=== PATIENT | male | born 1935 | race Caucasian/White ===

== ENCOUNTER 2017-05-29 11:19 | Inpatient (IN) ==
[2017-05-29] MEDS ORDERED: Pantoprazole 40 MG VIAL IVP ONE (11:48)
[2017-05-29] MEDS ORDERED: Ondansetron 4 MG/2 ML VIAL IVP ONE (11:48)
[2017-05-29 12:17] LABS: Basophils % 0.1 %; Eosinophils % 0.1 %; Red Blood Count 1.86 M/mcL (4.19-5.50)
[2017-05-29 12:18] LABS: Hematocrit 16.7 % (37.5-50.1); Immature Granulocytes % 0.7 % (0-4); Lymphocytes # 1.2 K/mcL (0.6-4.6); Lymphocytes % 13.8 %; Mean Corpuscular HGB Conc 31.1 g/dL (31.6-35.5); Mean Corpuscular Volume 89.8 fL (83.0-100.0); Mean Platelet Volume 10.4 fL (9.4-12.4); Monocytes # 0.6 K/mcL (0.0-1.3); Monocytes % 6.3 %; Neutrophils # 7.1 K/mcL (1.6-8.9); Nucleated Red Blood Cells 0.2 /100 WBC (0); Platelet Count 179 K/mcL (140-400); Red Cell Distribution Width 20.5 % (11.5-14.5)
[2017-05-29 12:34] LABS: Albumin 3.5 g/dL (3.5-5.0); Albumin/Globulin Ratio 1.2 (1.1-2.2); Bilirubin,Direct 0.2 mg/dL (0.0-0.5); Bilirubin,Indirect 0.3 mg/dL (0.0-1.2); Bilirubin,Total 0.5 mg/dL (0.2-1.2); Calcium 9.4 mg/dL (8.6-10.8); Globulin 2.9 g/dL (2.4-3.5); Potassium 4.3 mEq/L (3.5-4.5); Total Protein 6.4 g/dL (6.0-8.3)
[2017-05-29 12:36] LABS: Hemoglobin 5.2 g/dL (12.9-16.9)
[2017-05-29 12:48] LABS: Anisocytosis 1+ (Not Present); Platelet Estimate Normal (Normal); Polychromasia 1+ (Not Present); Rouleaux Present (Not Present)
[2017-05-29 12:54] LABS: INR 1.2; Prothrombin Time 12.8 Seconds (9.4-12.1)
[2017-05-29 12:56] LABS: Activated Partial Thrombo Time 29.5 Seconds (26.0-36.0)
--- NOTE | 2017-05-29 13:13 | Emergency Department Note ---
Disposition Clinical Impression: Bleeding gastrointestinal Qualifiers: GI bleed type/associated pathology: melena Qualified Code(s): K92.1 - Melena Disposition: Admitted As Inpatient Condition: Good Time of Disposition: 16:43 General Adult HPI - General Chief complaint: ED Abdominal Pain Stated complaint: ABD PAIN Time Seen by Provider: 05/29/17 11:48 Source: patient Limitations: no limitations Nursing Notes Reviewed: Yes Vital Signs Reviewed: Yes - History of Present Illness HPI Narrative: Male patient presenting to emergency complaining of 3 coffee-ground stools overnight. He states that he is generally weak and a little short of breath. Denies any chest pain. Denies any abdominal pain initially. Denies any emesis. Pain Scale: 5 - Related Data Home Medications Medication Instructions Recorded Confirmed Doxazosin [Cardura] 4 mg PO DAILY 05/29/16 05/29/17 Furosemide [Lasix] 40 mg PO DAILY 05/29/16 05/29/17 Irbesartan [Avapro] 150 mg PO DAILY 05/29/16 05/29/17 Levothyroxine [Synthroid] 112 mcg PO DAILY 05/29/16 05/29/17 Pramipexole [Mirapex] 0.25 mg PO HS 05/29/16 05/29/17 hydrALAZINE [HydrALAZINE] 25 mg PO TID 05/29/16 05/29/17 Albuterol Sulfate [Albuterol 2 puff IH Q4-6H PRN 11/03/16 05/29/17 Inhaler] Aspirin [Lo-Dose Aspirin EC] 81 mg PO DAILY 11/03/16 05/29/17 Meclizine [Antivert] 25 mg PO DAILY 11/03/16 05/29/17 Ferrous Sulfate [Iron] 325 mg PO BID 05/29/17 05/29/17 Gabapentin [Neurontin] 300 mg PO Q8H 05/29/17 05/29/17 HYDROcodone/Acet 5/325 mg [Pryor 1 tab PO Q6H PRN 05/29/17 05/29/17 5-325 mg] Metoprolol XL (24 HR) Succ [Toprol 50 mg PO DAILY 05/29/17 05/29/17 XL] NIFEdipine XL (24 HR) [Procardia 60 mg PO DAILY 05/29/17 05/29/17 XL] Potassium Chloride [K-Tab ER] 20 meq PO DAILY 05/29/17 05/29/17 Ranitidine HCl [Heartburn Relief] 150 mg PO BID PRN 05/29/17 05/29/17 SitaGLIPtin [Januvia] 100 mg PO DAILY 05/29/17 05/29/17 clonazePAM [Klonopin] 0.5 mg PO BID PRN 05/29/17 05/29/17 Allergies Allergy/AdvReac Type Severity Reaction Status Date / Time No Known Allergies Allergy Verified 05/29/16 18:05 All systems ED: reviewed and negative except as stated. Constitutional: Denies: fever, chills ENT ED: Denies: congestion Cardiovascular: Denies: chest pain, palpitations, syncope Respiratory: Reports: dyspnea (Mild). Denies: cough, wheezes Gastrointestinal: Reports: diarrhea (Coffee-ground colored 3 episodes overnight. ). Denies: abdominal pain, nausea, vomiting, hematemesis, melena, hematochezia Genitourinary: Denies: urgency, dysuria, frequency, hematuria Musculoskeletal: Denies: back pain, neck pain Integumentary: Denies: rash Neurological: Reports: weakness Past Medical History - Past Medical History Attestation: Yes The following information was validated with the patient. Source: patient Medical history: Reports: CHF, coronary artery disease, dementia, diabetes, hyperlipidemia, hypertension, pulmonary embolus, thyroid disease Surgical history: Reports: orthopedic, other (Cervical fixation 2) Psychiatric history: Reports: no psych history - Social History Smoking Status: Former smoker Smokeless Tobacco Status: No Alcohol use: Reports: occasionally Drug use: Reports: none Physical Exam - General Limitations: no limitations General appearance: alert, in no apparent distress - Head Head exam: atraumatic, normocephalic, normal inspection - Eye Eye exam: Present: normal appearance, PERRL, EOMI - ENT ENT exam: normal exam, normal oropharynx, mucous membranes moist - Neck Neck exam: Present: normal inspection, full ROM, trachea midline - Chest Chest inspection: Present: normal inspection, symmetric chest wall rise - Respiratory Respiratory exam: Present: normal lung sounds bilaterally. Absent: respiratory distress - Cardiovascular Cardiovascular exam: Present: regular rate, normal rhythm, normal heart sounds - Abdominal Exam Abdominal exam: Present: soft, Non-Tender, normal bowel sounds. Absent: tenderness, distention, guarding, rebound, rigidity, organomegaly - Extremities Exam Extremities exam: Present: normal inspection, full ROM, normal capillary refill. Absent: tenderness, pedal edema - Back Exam Back exam: Present: normal inspection, full ROM. Absent: tenderness, CVA tenderness (R), CVA tenderness (L) - Neurological Exam Neurological exam: Present: alert, oriented X3 - Psychiatric Psychiatric exam: Present: normal affect, normal mood - Skin Skin exam: Present: warm, dry, intact, pallor. Absent: rash Course Course Narrative: Patient presents in respiratory be a EMS. He states that he has had 3 episodes of coffee-ground stools over the past night. This has happened one other time in the and had have blood transfusion at that time. States he has never had any belly surgeries. Did have a colonoscopy in the as well. He otherwise feels well. He has some mild nausea but no vomiting. On exam he is pale. His conjunctivae are pale. He states he is mildly short of breath and weak. Denies any chest pain or abdominal pain. However on palpation he has some mild pain in his right and left lower quadrants. He denies any urinary symptoms. He denies any bright red blood per rectum. We will get basic lab workup and type and screen him at this time. I am suspecting a GI bleed at this time. We will also place an NG to suction. His lung sounds are clear and heart sounds are normal. He has no evidence of swelling to his extremities. Patient denies any anticoagulant use of other than aspirin. - Reevaluation(s) Reevaluation #1: Patient's hemoglobin is 5. We will transfuse patient while he is here. NG did not produce any blood. Bedside Hemoccult was positive. We will admit patient to the hospital for GI bleed. He is agreeable to this. - Consultations Consultation #1: Dr Graf accepted patient in stable condition. Time: 14:19 Vital Signs Temperature 97.6 F 05/29/17 11:22 Pulse Rate 92 05/29/17 11:22 Respiratory Rate 22 05/29/17 11:22 Blood Pressure 122/38 05/29/17 11:22 O2 Sat by Pulse Oximetry 97 05/29/17 11:22 Temperature 98.4 F 05/29/17 17:41 Pulse Rate 70 05/29/17 17:41 Respiratory Rate 15 05/29/17 17:41 Blood Pressure 148/75 05/29/17 17:41 O2 Sat by Pulse Oximetry 98 05/29/17 17:41 Oxygen Delivery Oxygen Delivery Room Air Medical Decision Making - Medical Records Medical records reviewed: Yes I reviewed the patient's medical records. - Lab Data Lab results reviewed: Yes I reviewed the patient's lab results. Result diagrams: 05/29/17 12:08 05/29/17 12:08 Lab Results 05/29/17 05/29/17 05/29/17 Range/Units 12:08 12:08 12:08 WBC 9.0 (4.3-11.1) K/mcL RBC 1.86 L (4.19-5.50) M/mcL Hgb 5.2 L* (12.9-16.9) g/dL Hct 16.7 L (37.5-50.1) % MCV 89.8 (83.0-100.0) fL MCH 28.0 (28.0-33.3) pg MCHC 31.1 L (31.6-35.5) g/dL RDW 20.5 H (11.5-14.5) % Plt Count 179 (140-400) K/mcL MPV 10.4 (9.4-12.4) fL Immature Gran % 0.7 (0-4) % Seg Neutrophils % 79.0 % Lymphocytes % 13.8 % Monocytes % 6.3 % Eosinophils % 0.1 % Basophils % 0.1 % Neutrophils # 7.1 (1.6-8.9) K/mcL Lymphocytes # 1.2 (0.6-4.6) K/mcL Monocytes # 0.6 (0.0-1.3) K/mcL Eosinophils # 0.0 (0.0-0.6) K/mcL Basophils # 0.0 (0.0-0.2) K/mcL Nucleated RBCs/100 WBC 0.2 H (0) /100 WBC Platelet Estimate Normal (Normal) Polychromasia 1+ A (Not Present) Anisocytosis 1+ A (Not Present) Rouleaux Present A (Not Present) PT (9.4-12.1) Seconds INR APTT (26.0-36.0) Seconds Sodium 140 (136-145) mEq/L Potassium 4.3 (3.5-4.5) mEq/L Chloride 108 (98-109) mEq/L Carbon Dioxide 20 (19-29) mEq/L BUN 72 H (8-26) mg/dL Creatinine 1.87 H (0.72-1.25) mg/dL Est GFR ( Amer) 42 L (> 60) Est GFR (Non-Af Amer) 35 L (> 60) BUN/Creatinine Ratio 39 H (6-26) Glucose 173 H (70-99) mg/dL Calculated Osmolality 315 H (280-300) Lactic Acid 3.1 H (0.5-2.2) mmol/L Calcium 9.4 (8.6-10.8) mg/dL Total Bilirubin 0.5 (0.2-1.2) mg/dL Direct Bilirubin 0.2 (0.0-0.5) mg/dL Indirect Bilirubin 0.3 (0.0-1.2) mg/dL AST 13 (5-34) Units/L ALT 11 (0-55) Units/L Alkaline Phosphatase 67 (38-126) Units/L Troponin I (0-0.03) ng/mL Serum Total Protein 6.4 (6.0-8.3) g/dL Albumin 3.5 (3.5-5.0) g/dL Globulin 2.9 (2.4-3.5) g/dL Albumin/Globulin Ratio 1.2 (1.1-2.2) Lipase 23 (8-78) Units/L Stool Occult Blood (Negative) Specimen Rejected Blood Type Antibody Screen Crossmatch 05/29/17 05/29/17 05/29/17 Range/Units 12:08 12:08 12:08 WBC (4.3-11.1) K/mcL RBC (4.19-5.50) M/mcL Hgb (12.9-16.9) g/dL Hct (37.5-50.1) % MCV (83.0-100.0) fL MCH (28.0-33.3) pg MCHC (31.6-35.5) g/dL RDW (11.5-14.5) % Plt Count (140-400) K/mcL MPV (9.4-12.4) fL Immature Gran % (0-4) % Seg Neutrophils % % Lymphocytes % % Monocytes % % Eosinophils % % Basophils % % Neutrophils # (1.6-8.9) K/mcL Lymphocytes # (0.6-4.6) K/mcL Monocytes # (0.0-1.3) K/mcL Eosinophils # (0.0-0.6) K/mcL Basophils # (0.0-0.2) K/mcL Nucleated RBCs/100 WBC (0) /100 WBC Platelet Estimate (Normal) Polychromasia (Not Present) Anisocytosis (Not Present) Rouleaux (Not Present) PT (9.4-12.1) Seconds INR APTT (26.0-36.0) Seconds Sodium (136-145) mEq/L Potassium (3.5-4.5) mEq/L Chloride (98-109) mEq/L Carbon Dioxide (19-29) mEq/L BUN (8-26) mg/dL Creatinine (0.72-1.25) mg/dL Est GFR ( Amer) (> 60) Est GFR (Non-Af Amer) (> 60) BUN/Creatinine Ratio (6-26) Glucose (70-99) mg/dL Calculated Osmolality (280-300) Lactic Acid (0.5-2.2) mmol/L Calcium (8.6-10.8) mg/dL Total Bilirubin (0.2-1.2) mg/dL Direct Bilirubin (0.0-0.5) mg/dL Indirect Bilirubin (0.0-1.2) mg/dL AST (5-34) Units/L ALT (0-55) Units/L Alkaline Phosphatase (38-126) Units/L Troponin I 0.05 H* (0-0.03) ng/mL Serum Total Protein (6.0-8.3) g/dL Albumin (3.5-5.0) g/dL Globulin (2.4-3.5) g/dL Albumin/Globulin Ratio (1.1-2.2) Lipase (8-78) Units/L Stool Occult Blood (Negative) Specimen Rejected Volume Blood Type O POSITIVE Antibody Screen NEGATIVE Crossmatch See Detail 05/29/17 05/29/17 Range/Units 12:33 14:12 WBC (4.3-11.1) K/mcL RBC (4.19-5.50) M/mcL Hgb (12.9-16.9) g/dL Hct (37.5-50.1) % MCV (83.0-100.0) fL MCH (28.0-33.3) pg MCHC (31.6-35.5) g/dL RDW (11.5-14.5) % Plt Count (140-400) K/mcL MPV (9.4-12.4) fL Immature Gran % (0-4) % Seg Neutrophils % % Lymphocytes % % Monocytes % % Eosinophils % % Basophils % % Neutrophils # (1.6-8.9) K/mcL Lymphocytes # (0.6-4.6) K/mcL Monocytes # (0.0-1.3) K/mcL Eosinophils # (0.0-0.6) K/mcL Basophils # (0.0-0.2) K/mcL Nucleated RBCs/100 WBC (0) /100 WBC Platelet Estimate (Normal) Polychromasia (Not Present) Anisocytosis (Not Present) Rouleaux (Not Present) PT 12.8 H (9.4-12.1) Seconds INR 1.2 APTT 29.5 (26.0-36.0) Seconds Sodium (136-145) mEq/L Potassium (3.5-4.5) mEq/L Chloride (98-109) mEq/L Carbon Dioxide (19-29) mEq/L BUN (8-26) mg/dL Creatinine (0.72-1.25) mg/dL Est GFR ( Amer) (> 60) Est GFR (Non-Af Amer) (> 60) BUN/Creatinine Ratio (6-26) Glucose (70-99) mg/dL Calculated Osmolality (280-300) Lactic Acid (0.5-2.2) mmol/L Calcium (8.6-10.8) mg/dL Total Bilirubin (0.2-1.2) mg/dL Direct Bilirubin (0.0-0.5) mg/dL Indirect Bilirubin (0.0-1.2) mg/dL AST (5-34) Units/L ALT (0-55) Units/L Alkaline Phosphatase (38-126) Units/L Troponin I (0-0.03) ng/mL Serum Total Protein (6.0-8.3) g/dL Albumin (3.5-5.0) g/dL Globulin (2.4-3.5) g/dL Albumin/Globulin Ratio (1.1-2.2) Lipase (8-78) Units/L Stool Occult Blood Positive A (Negative) Specimen Rejected Blood Type Antibody Screen Crossmatch - Radiology Data Radiology results reviewed: Yes I reviewed the patient's radiology results. Critical Care Time Total Critical Care Time: 31 Attestation: Greater than 31 minutes of critical care time was spent resuscitating this acutely ill and injured patient suffering from gastrointestinal hemorrhage. This was excluding billable procedures Attestation Statement - Attestation Attestation: I examined this patient and my medical decision-making was reviewed with the Resident Physician. I agree with the documented findings, disposition and treatment plan as described except to the extent set forth below. Patient with findings of gastrointestinal hemorrhage. Protonix initiated. Will initiate transfusions. Patient is stable at the time of admission. No signs of hemodynamic instability.
[2017-05-29] MEDS ORDERED: Acetaminophen 325 MG TABLET PO PRN (16:14)
[2017-05-29] MEDS ORDERED: *HR* Morphine 2 MG/ML SYRINGE IVP PRN (16:14)
[2017-05-29] MEDS ORDERED: *HR* HYDROcodone/Acet 5/325 mg TABLET PO PRN (16:14)
[2017-05-29] MEDS ORDERED: Ondansetron 4 MG/2 ML VIAL IVP PRN (16:14)
[2017-05-29] MEDS ORDERED: Naloxone 0.4 MG/ML INJ IVP PRN (16:14)
[2017-05-29] MEDS ORDERED: clonazePAM 0.5 MG TABLET PO PRN (16:28)
[2017-05-29] MEDS ORDERED: SODIUM CHLORIDE/NAHCO3/KCL/PEG 4,000 ML SOLN.RECON PO ONE (16:35)
[2017-05-29] MEDS ORDERED: *HR* Dextrose 50 % in Water (Syg) 50 ML SYRINGE IVP PRN (16:36)
[2017-05-29] MEDS ORDERED: Dextrose Gel 15 GM PO PRN ×2 (16:36)
[2017-05-29] MEDS ORDERED: D5% in Water 1,000 ML IVC PRN (16:36)
[2017-05-29] MEDS ORDERED: Polyethylene Glycol 3350 255 GM POWDER PO PRN (17:01)
--- NOTE | 2017-05-29 17:07 | Internal Med History&Physical ---
<José Manuel Balderas - Last Filed: 05/29/17 18:28> Date of Encounter: 05/29/17 Time of Encounter: 15:30 Assessment and Plan (1) Bleeding gastrointestinal Current visit: Yes Status: Acute Patient presents with report of three coffee-ground stools last night. Hgb today is 5.2 and Hct 16.7. In October, Hgb was 11.4 and Hct was 34.8. 06/01/16 patient's Hgb was 9.5 and Hct was 28.9 which was his lowest prior to today. Patient was typed and screened and found to be O positive with negative antibody screen. Patient reports coffee-ground stools x3 last night. Acute anemia is likely due to GI bleed. GI consult ordered and discussed with Dr. Arrieta with plan to administer bowel prep this evening and do colonoscopy tomorrow if patient has completed prep successfully. GoLytely 4,000 mL ordered with back-up of Miralax/Gatorade if patient cannot tolerate GoLytely. Clear liquid diet tonight, then NPO after midnight. Protonix drip ordered. Patient received 2 units of RBCs in the ED and we will continue with 1 more. Patient to be monitored closely for signs of bleeding, cardiac, and/or respiratory distress. (2) Low hemoglobin and low hematocrit Current visit: Yes Status: Acute Patient presents with acutely low Hgb and Hct. Hgb today is 5.2 and Hct 16.7. In October, Hgb was 11.4 and Hct was 34.8. 06/01/16 patient's Hgb was 9.5 and Hct was 28.9 which was his lowest prior to today. Patient was typed and screened and found to be O positive with negative antibody screen. Patient reports coffee-ground stools x3 last night. Acute anemia is likely due to GI bleed. GI consult ordered and discussed with Dr. Arrieta. Patient received 2 units of RBCs in the ED and we will continue with 1 more. Patient to be monitored closely for signs of cardiac and/or respiratory distress. (3) SOB (shortness of breath) Current visit: Yes Status: Acute Patient presents with acute SOB most likely related to current acute anemia. Patient's does not appear to be having acute exacerbation of CHF. Place patient on supplemental O2 with continuous SPO2 monitoring. Will hold patient's Lasix for now. DuoNebs ordered every 4 scheduled. Will monitor patient for signs of fluid overload and administer lasix IVP if necessary. Monitor I&O and daily weight. (4) CHF (congestive heart failure) Current visit: Yes Status: Chronic Patient presents with history of chronic CHF. Patient is currently experiencing acute SOB most likely related to current acute anemia. Patient's bilateral lower extremities are not edematous at this time. Patient has minor wheezes on auscultation bilaterally. Place patient on supplemental O2 with continuous SPO2 monitoring. Will hold patient's Lasix for now. DuoNebs ordered every 4 scheduled. Will monitor patient for signs of fluid overload and administer lasix IVP if necessary. Monitor I&O and daily weight. (5) Diabetes Current visit: Yes Status: Chronic Patient presents with history of chronic diabetes managed by oral anti- hyperglycemic medications. Patient's Januvia and administer low-dose correction insulin sliding scale with hypoglycemic protocol. Blood glucose monitoring before meals at bedtime. A1c ordered. (6) HLD (hyperlipidemia) Current visit: Yes Status: Chronic Patient presents with history of chronic hyperlipidemia. Patient does not currently take any statin medications. Lipid panel ordered. Will consider adding Lipitor to patient's medications based on lipid panel results. (7) HTN (hypertension) Current visit: Yes Status: Chronic Patient presents with history of chronic hypertension. Will monitor patient in vital signs and continue patient's Procardia, hydralazine, and metoprolol. Hydralazine 10 mg IVP every 6 when necessary ordered for systolic BP greater than 160. (8) Thyroid disease Current visit: Yes Status: Chronic Patient presents with history of chronic thyroid disease. Will continue patient' s Synthroid. (9) CAD (coronary artery disease) Current visit: Yes Status: Chronic Patient presents with history of chronic CAD. Continuous telemetry. EKG ordered. Will continue patient's Procardia, hydralazine, and metoprolol. Hydralazine 10 mg Q6 PRN ordered for systolic BP >160. (10) DVT prophylaxis Current visit: Yes Status: Acute Patient to be placed on DVT prophylaxis due to current admission protocol and bed rest status. Pharmacologic DVT prophylaxis is contraindicated due to patient 's suspected GI bleeding based on coffee-ground stool and positive fecal hemoccult. Will place SCDs on patient's bilateral LEs. Internal Medicine - H&P: HPI Chief complaint: Abdominal Pain/Coffee-Ground Stools Admitted From: Emergency Dept Plans for Post Hospital Care: Home History of present illness: Mr. Nix is a 81 year old male who presents from the ED with chief complaint of abdominal pain and 3 episodes of coffee-ground stool last night. Patient reports shortness of breath, weakness, and lightheadedness. Patient has no known allergies. Patient's past medical history includes diabetes type 2 with oral anti-hyperglycemics, CHF, CAD, hypertension, hyperlipidemia, thyroid disease and surgical history of bilateral knee arthroplasty, and lumbar spinal fusion. presented yesterday due to 3x coffee-ground bowel movements for 1 day with nausea but no vomiting. He was diagnosed with unspecified kidney disease this year and sees Dr. Castle at [facility]. His last colonoscopy was in the late . Patient states he cannot recall having an EGD. He is generally weak and has shortness of breath. He denied any chest pain or abdominal pain. FOBT was positive. CT abdomen revealed renal and hepatic cysts, no dilated loops or appendix, diverticulosis without inflammation. His hemoglobin today was 5.2 and received one unit of blood product. His Urine culture was positive for E. coli without leukocytosis. Lactic acid = 3.1, Troponin = 0.5, GFR = 35. Mr. Nix is at high risk for further morbidity due to his current suspected bleeding, low H/ H, need for transfusions, and cardiac/respiratory risk factors and will be placed as inpatient. GI consult ordered and discussed with Dr. Arrieta with plan to administer bowel prep this evening and do colonoscopy tomorrow if patient has completed prep successfully. GoLytely 4,000 mL ordered with back-up of Miralax/Gatorade if patient cannot tolerate GoLytely. Clear liquid diet tonight , then NPO after midnight. Protonix drip ordered. Patient received 2 units of RBCs in the ED and we will continue with 1 more. Patient placed on continuous cardiac telemetry, supplemental O2, and continuous SpO2 monitoring. DuoNebs Q4 ordered. Patient to be monitored closely for signs of bleeding, cardiac, and/or respiratory distress. Time spent with patient and family >50 minutes. Past Med Surg Social Fam HX - Past Medical History Source: patient Medical history: CHF, coronary artery disease, dementia, diabetes, hyperlipidemia, hypertension, pulmonary embolus, thyroid disease Psychiatric history: no psych history - Past Surgical History Surgical History: orthopedic, other (Cervical fixation 2, Bilateral knees) - Social History Smoking Status: Former smoker Packs per day: 1 PPD - reports quitting in 1952 Smokeless Tobacco Status: No Alcohol use: occasionally Drug use: none Occupational status: retired Current living situation: Home, With Family Activity Level: Independent ambulation Recent Out of Country Travel Within the Last 8 Weeks: No Exposure or Possible Exposure to Illness During Travel: No - Family History Father Race: Family Member Ethnicity: Non- Living Status: Age at : 80 Cause of : Old age Hx Family Medical Disorders: No Mother Race: Family Member Ethnicity: Non- Living Status: Age at : 64 Cause of : HD Hx Family Cardiac Disorders: Yes (HD) Brother Race: Family Member Ethnicity: Non- Living Status: Age at : 42 Cause of : CT Hx Family Cardiac Disorders: Yes (HD, CT) Sister Race: Family Member Ethnicity: Non- Living Status: Age at : 72 Cause of : CHF Hx Family Cardiac Disorders: Yes (HD, CHF) Internal Medicine - H&P: Meds Doxazosin [Cardura] 4 mg PO DAILY 05/29/16 [History] Furosemide [Lasix] 40 mg PO DAILY 05/29/16 [History] Irbesartan [Avapro] 150 mg PO DAILY 05/29/16 [History] Levothyroxine [Synthroid] 112 mcg PO DAILY 05/29/16 [History] Pramipexole [Mirapex] 0.25 mg PO HS 05/29/16 [History] hydrALAZINE [HydrALAZINE] 25 mg PO TID 05/29/16 [History] Albuterol Sulfate [Albuterol Inhaler] 2 puff IH Q4-6H PRN 11/03/16 [History] Aspirin [Lo-Dose Aspirin EC] 81 mg PO DAILY 11/03/16 [History] Meclizine [Antivert] 25 mg PO DAILY 11/03/16 [History] Ferrous Sulfate [Iron] 325 mg PO BID 05/29/17 [History] Gabapentin [Neurontin] 300 mg PO Q8H 05/29/17 [History] HYDROcodone/Acet 5/325 mg [[place] 5-325 mg] 1 tab PO Q6H PRN 05/29/17 [History] Metoprolol XL (24 HR) Succ [Toprol XL] 50 mg PO DAILY 05/29/17 [History] NIFEdipine XL (24 HR) [Procardia XL] 60 mg PO DAILY 05/29/17 [History] Potassium Chloride [K-Tab ER] 20 meq PO DAILY 05/29/17 [History] Ranitidine HCl [Heartburn Relief] 150 mg PO BID PRN 05/29/17 [History] SitaGLIPtin [Januvia] 100 mg PO DAILY 05/29/17 [History] clonazePAM [Klonopin] 0.5 mg PO BID PRN 05/29/17 [History] 3 Allergy/AdvReac Type Severity Reaction Status Date / Time No Known Allergies Allergy Verified 05/29/16 18:05 All Systems PM: A 10-system review of systems was performed and is negative for pertinent findings except as documented above in the HPI. - Constitutional Constitutional: as per HPI, fatigue, weakness, no chills, no fever(s), no night sweats - EENT Eyes: no change in vision, no discharge, no pain, no photophobia Ears: no ear discharge, no ear pain, no tinnitus Nose, mouth and throat: no dysphagia, no nasal discharge, no neck pain, no sore throat - Breasts Breasts: as per HPI - Cardiovascular Cardiovascular ROS IM: as per HPI, dyspnea, lightheadedness, no chest pain, no diaphoresis, no palpitations, no syncope - Respiratory Respiratory: as per HPI, dyspnea - Gastrointestinal Gastrointestinal: as per HPI, abdominal pain, change in stool character (Coffe ground stools x3 last night) - Genitourinary Genitourinary ROS male: as per HPI - Musculoskeletal Musculoskeletal ROS IM: no numbness, no tingling - Integumentary Integumentary IM: no rash, no unusual bruising - Neurological Neurological ROS: no confusion, no convulsions, no focal weakness, no numbness, no tingling, no tremor(s) - Psychiatric Psychiatric: as per HPI - Endocrine Endocrine IM: as per HPI - Hematologic/Lymphatic Hematologic/Lymphatic: as per HPI, no easy bruising - Allergic/Immunologic Allergic/Immunologic: as per HPI - Constitutional Vitals: Temp Pulse Resp BP Pulse Ox 98.3 F 69 18 163/61 100 05/29/17 16:29 05/29/17 16:29 05/29/17 16:29 05/29/17 16:29 05/29/17 16:29 General appearance: Present: cooperative, mild distress, A&O X 3, pleasant, obese, answers questions appropriately - Head Head exam: Present: atraumatic, normocephalic - Eye Eye exam: Present: PERRL, conjuntiva pink, sclera anicteric Pupils: Present: PERRL - ENT ENT exam: Present: normal exam, normal external ear exam - Neck Neck exam general surgery: Present: normal inspection, supple, trachea midline. Absent: lymphadenopathy - Respiratory Respiratory exam: Present: accessory muscle use, respiratory distress, wheezes - Cardiovascular Cardiovascular exam: Present: RRR, +S1, +S2. Absent: diastolic murmur, gallop, rubs, systolic murmur - GI/Abdominal GI/Abdominal exam: Present: diminished bowel sounds, guarding, soft, no peritoneal signs. Absent: distended, tenderness - Rectal Rectal exam: Present: deferred - Additional comments: exam deferred. - Extremities Exam Extremities exam: Present: warm, radial pulses palpable and symmetrical. Absent : calf tenderness, cyanotic, pedal edema - Back Exam Back exam: Present: normal inspection - Neurological Exam Neurological exam: Present: CN II-XII intact, oriented X3, no focal deficits. Absent: pronater drift, facial droop, speech deficit - Psychiatric Psychiatric exam: Present: normal affect, normal mood - Skin Skin exam: Present: dry, intact Internal Med - H&P Results - Labs CBC & Chem 7: 05/29/17 12:08 05/29/17 12:08 - Diagnostic Studies CT scan - abdomen Additional comments: Impressions Abdomen/Pelvis CT 05/29/17 11:50 IMPRESSION: 1. No acute intra-abdominal abnormality. 2. No acute intrapelvic abnormality. 3. Diverticulosis without obvious inflammation. 4. Bilateral renal and hepatic cysts. 5. Small fat containing periumbilical hernia. D/ / Doron Bah MD / Doron Bah MD Interpreting Provider: Doron Bah MD <Meme Graf - Last Filed: 05/30/17 08:11> Date of Encounter: 05/29/17 Time of Encounter: 18:10 Internal Medicine - H&P: HPI History of present illness: Mr. Nix is a 81 year old male All Systems PM: A 10-system review of systems was performed and is negative for pertinent findings except as documented above in the HPI. - Constitutional Vitals: Temp Pulse Resp BP Pulse Ox 98.4 F 70 18 145/61 99 05/30/17 06:02 05/30/17 06:02 05/30/17 06:02 05/30/17 06:02 05/30/17 01:15 Internal Med - H&P Results - Labs CBC & Chem 7: 05/30/17 00:27 05/30/17 00:27 Labs: Short CBC 05/29/17 05/30/17 Range/Units 21:33 00:27 WBC 9.9 10.7 (4.3-11.1) K/mcL Hgb 6.6 L 7.2 L (12.9-16.9) g/dL Hct 20.0 L 21.8 L (37.5-50.1) % Plt Count 185 179 (140-400) K/mcL Neutrophils # 7.7 8.1 (1.6-8.9) K/mcL BMP 05/29/17 05/30/17 21:33 00:27 Sodium 142 141 Potassium 4.1 4.0 Chloride 110 H 111 H Carbon Dioxide 22 20 BUN 59 H 56 H Creatinine 1.73 H 1.73 H Glucose 126 H 114 H Calcium 8.9 8.7 Cardiac Enzymes 05/29/17 05/30/17 Range/Units 19:17 00:27 Troponin I 0.17 H* 0.31 H* (0-0.03) ng/mL Urine 05/29/17 Range/Units 17:55 Urine Color Yellow (Yellow) Urine Clarity Clear (Clear) Urine pH 6.5 (5.0-8.0) pH Units Ur Specific [place] 1.012 (1.010-1.025) Urine Protein Negative (Neg-Trace) mg/dL Urine Glucose (UA) Normal (Normal) mg/dL - Attending Attestation Patient independently seen and examined at bedside. Admitted for symptomatic anemia secondary to LGIB. Surgery consultation requested. Pt getting 3unit PRBC transfusion. Closely monitor for signs for withdrawal. Case discussed with JOANN Balderas, I agree with his listed findings, assessment, and plan.
[2017-05-29] MEDS ORDERED: 0.9 % Sodium Chloride 250 ML ONE ×2 (17:17→21:36)
--- NOTE | 2017-05-29 17:48 | General Surgery Consult Note ---
<Mike Westbrook - Last Filed: 05/29/17 18:43> Date of Encounter: 05/29/17 Time of Encounter: 17:15 Assessment and Plan (1) Bleeding gastrointestinal Current Visit: Yes Status: Acute Patient presented to ED for 3x bloody diarrhea without abdominal pain x 1 day. + FOBT. CT abd without contrast reveals renal/hepatic cysts, no dilated loops, no dilated appendix, + diverticulosis w/o inflammation. Hb = 5.2 and currently receiving second unit of blood product. Check H/H at 2100 tonight after blood infusion and report to Dr. Arrieta. Bowel prep this evening and colonoscopy scheduled for tomorrow a.m. NPO after midnight. Continue supportive and pain management. PPI for nausea and vomiting prophylaxis. Monitor closely for signs of bleeding. Qualifiers: GI bleed type/associated pathology: unspecified gastrointestinal hemorrhage type Qualified Code(s): K92.2 - Gastrointestinal hemorrhage, unspecified (2) Low hemoglobin and low hematocrit Current Visit: Yes Status: Acute Hb = 5.2, Hct = 16.7 Patient receiving 2nd unit of blood product. Recheck H/H after infusion and report to Dr. Arrieta. Monitor H/H closely with a.m. labs. (3) HLD (hyperlipidemia) Current Visit: Yes Status: Chronic Hold PO medication for now. Treat per primary team. Qualifiers: Hyperlipidemia type: pure hypercholesterolemia Qualified Code(s): E78.00 - Pure hypercholesterolemia, unspecified; E78.0 - Pure hypercholesterolemia (4) HTN (hypertension) Current Visit: Yes Status: Chronic Treat per primary team. Qualifiers: Hypertension type: essential hypertension Qualified Code(s): I10 - Essential (primary) hypertension (5) Thyroid disease Current Visit: Yes Status: Chronic Treat per primary team. (6) CKD (chronic kidney disease) stage 3, GFR 30-59 ml/min Current Visit: No Status: Chronic GFR = 35, BUN = 72, Cr = 1.[address] Castle at [facility] and was recently diagnosed with kidney disease this year. He denies any currently treatment. Dose medications accordingly. Monitor with a.m. labs. Consult with nephrology as needed. History of Present Illness Consult date: 05/29/17 Reason for consult: other (coffee ground diarrhea with +FOBT) History of present illness: 81 male with PMH of diabetes type 2, CHF, CAD, hypertension, hyperlipidemia, thyroid disease and surgical history of bilateral knee arthroplasty, and Lumbar spinal fusion presented yesterday due to 3x coffee- ground bowel movements for 1 day with nausea but no vomiting. He was diagnosed with unspecified kidney disease this year and sees Dr. Castle at [facility]. His last colonoscopy was in the . He is generally weak and has shortness of breath. He denied any chest pain or abdominal pain. FOBT was positive. CT abdomen revealed renal and hepatic cysts, no dilated loops or appendix, diverticulosis without inflammation. His hemoglobin today was 5.2 and received one unit of blood product. Lactic acid = 3.1, Troponin = 0.5, GFR = 35. Scheduled for colonoscopy tomorrow A.M. Today, patient continues to have nausea. He admits to flatus but no bowel movement since admission. He admits to RLQ abdominal pain without radiation. He has urine catheter with 750 ml clear output. Patient denies any signs of new bleed. Past Med Surg Social Fam HX - Past Medical History Medical history: CHF, coronary artery disease, dementia, diabetes, hyperlipidemia, hypertension, pulmonary embolus, thyroid disease Psychiatric history: no psych history - Past Surgical History Surgical History: orthopedic, other (Cervical fixation 2, Bilateral knees) - Social History Smoking Status: Former smoker Packs per day: 1 PPD - reports quitting in 1951 Smokeless Tobacco Status: No Alcohol use: occasionally Drug use: none - Family History Father Race: Family Member Ethnicity: Non- Living Status: Age at : 80 Cause of : Old age Hx Family Medical Disorders: No Mother Race: Family Member Ethnicity: Non- Living Status: Age at : 64 Cause of : HD Hx Family Cardiac Disorders: Yes (HD) Brother Race: Family Member Ethnicity: Non- Living Status: Age at : 42 Cause of : IA Hx Family Cardiac Disorders: Yes (HD, IA) Sister Race: Family Member Ethnicity: Non- Living Status: Age at : 72 Cause of : CHF Hx Family Cardiac Disorders: Yes (HD, CHF) Medications and Allergies Doxazosin [Cardura] 4 mg PO DAILY 05/29/16 [History] Furosemide [Lasix] 40 mg PO DAILY 05/29/16 [History] Irbesartan [Avapro] 150 mg PO DAILY 05/29/16 [History] Levothyroxine [Synthroid] 112 mcg PO DAILY 05/29/16 [History] Pramipexole [Mirapex] 0.25 mg PO HS 05/29/16 [History] hydrALAZINE [HydrALAZINE] 25 mg PO TID 05/29/16 [History] Albuterol Sulfate [Albuterol Inhaler] 2 puff IH Q4-6H PRN 11/03/16 [History] Aspirin [Lo-Dose Aspirin EC] 81 mg PO DAILY 11/03/16 [History] Meclizine [Antivert] 25 mg PO DAILY 11/03/16 [History] Ferrous Sulfate [Iron] 325 mg PO BID 05/29/17 [History] Gabapentin [Neurontin] 300 mg PO Q8H 05/29/17 [History] HYDROcodone/Acet 5/325 mg [[place] 5-325 mg] 1 tab PO Q6H PRN 05/29/17 [History] Metoprolol XL (24 HR) Succ [Toprol XL] 50 mg PO DAILY 05/29/17 [History] NIFEdipine XL (24 HR) [Procardia XL] 60 mg PO DAILY 05/29/17 [History] Potassium Chloride [K-Tab ER] 20 meq PO DAILY 05/29/17 [History] Ranitidine HCl [Heartburn Relief] 150 mg PO BID PRN 05/29/17 [History] SitaGLIPtin [Januvia] 100 mg PO DAILY 05/29/17 [History] clonazePAM [Klonopin] 0.5 mg PO BID PRN 05/29/17 [History] 3 Allergy/AdvReac Type Severity Reaction Status Date / Time No Known Allergies Allergy Verified 05/29/16 18:05 Review of Systems All systems PM: A 10-system review of systems was performed and is negative for pertinent findings except as documented above in the HPI. - Constitutional fatigue, no chills, no fever(s), no night sweats - EENT Nose, mouth and throat: no dizziness, no sore throat - Cardiovascular no chest pain, no diaphoresis, no dyspnea, no palpitations - Respiratory no cough, no dyspnea, no hemoptysis - Gastrointestinal abdominal pain (RLQ), change in stool character, diarrhea, loose stools, melena , no constipation - Genitourinary no difficulty urinating, no hematuria - Musculoskeletal no muscle weakness, no numbness, no tingling - Neurological no focal weakness, no headache(s), no memory loss, no numbness, no paresthesias , no radicular pain - Psychiatric no confusion, no memory loss - Endocrine fatigue - Hematologic/Lymphatic no easy bleeding, no easy bruising General Surgery Exam Initial Vital Signs Temp Pulse Resp BP Pulse Ox 97.6 F 92 22 122/38 97 05/29/17 11:22 05/29/17 11:22 05/29/17 11:22 05/29/17 11:22 05/29/17 11:22 - General physical appearance well developed, well nourished, no distress - Eyes normal ocular movement - ENT atraumatic, normocephalic, CN 2-12 grossly intact - Neck trachea midline - Respiratory normal expansion, clear to auscultation - Cardiovascular Cardiovascular exam: Present: RRR, no murmurs/rubs/gallops - Abdomen Abdomen general surgery: Present: bowel sounds present, soft, non tender, rebound Abdominal Tenderness: Present: RLQ - Integumentary Integumentary general surgery: Present: warm and dry, no abnormal pigmentation - Neurologic Present: CN 2-12 grossly intact - Psychiatric Psychiatric general surgery: Present: speech is normal, memory intact Exam Initial Vital Signs Temp Pulse Resp BP Pulse Ox 97.6 F 92 22 122/38 97 05/29/17 11:22 05/29/17 11:22 05/29/17 11:22 05/29/17 11:22 05/29/17 11:22 Results - Labs 05/29/17 12:08 05/29/17 12:08 Abnormal lab results RBC 1.86 M/mcL (4.19-5.50) L 05/29/17 12:08 Hgb 5.2 g/dL (12.9-16.9) L* 05/29/17 12:08 Hct 16.7 % (37.5-50.1) L 05/29/17 12:08 MCHC 31.1 g/dL (31.6-35.5) L 05/29/17 12:08 RDW 20.5 % (11.5-14.5) H 05/29/17 12:08 Nucleated RBCs/100 WBC 0.2 /100 WBC (0) H 05/29/17 12:08 Polychromasia 1+ (Not Present) A 05/29/17 12:08 Anisocytosis 1+ (Not Present) A 05/29/17 12:08 Rouleaux Present (Not Present) A 05/29/17 12:08 PT 12.8 Seconds (9.4-12.1) H 05/29/17 12:33 BUN 72 mg/dL (8-26) H 05/29/17 12:08 Creatinine 1.87 mg/dL (0.72-1.25) H 05/29/17 12:08 Est GFR ( Amer) 42 (> 60) L 05/29/17 12:08 Est GFR (Non-Af Amer) 35 (> 60) L 05/29/17 12:08 BUN/Creatinine Ratio 39 (6-26) H 05/29/17 12:08 Glucose 173 mg/dL (70-99) H 05/29/17 12:08 Calculated Osmolality 315 (280-300) H 05/29/17 12:08 Lactic Acid 3.1 mmol/L (0.5-2.2) H 05/29/17 12:08 Troponin I 0.05 ng/mL (0-0.03) H* 05/29/17 12:08 Stool Occult Blood Positive (Negative) A 05/29/17 14:12 All other labs normal. Consult Discharge Plan - Plan Referrals: David Sawyer, DO [Primary Care Provider] - <Velma Arrieta - Last Filed: 05/30/17 16:33> Date of Encounter: 05/30/17 Time of Encounter: 07:55 Assessment and Plan (1) Melena Current Visit: Yes Status: Acute monitor, patient receiving blood, trend Hb bowel prep for colonoscopy (2) Anemia Current Visit: Yes Status: Acute will plan colonoscopy and EGD with iv meds, risks and benefits discussed with patient and he wishes to proceed Qualifiers: Anemia type: other cause Other causes of anemia: acute posthemorrhagic Qualified Code(s): D62 - Acute posthemorrhagic anemia (3) Bleeding gastrointestinal Current Visit: Yes Status: Acute Qualifiers: GI bleed type/associated pathology: melena Qualified Code(s): K92.1 - Melena (4) Elevated troponin Current Visit: Yes Status: Acute will consult cardiology Echo done showing LVEF 60%. Normal left ventricular size and systolic function. Indeterminate left ventricular diastolic function. RV is dilated with normal function. Mild-Moderate aortic stenosis. Mild- moderate aortic regurgitation. Moderate mitral regurgitation. Mild-moderate tricuspid regurgitation. Mild pulmonary hypertension. History of Present Illness Reason for consult: other History of present illness: 81 yo male with admission for melanotic stools and anemia with a Hb of 5.2 Review of Systems All systems PM: A 10-system review of systems was performed and is negative for pertinent findings except as documented above in the HPI. General Surgery Exam Initial Vital Signs Temp Pulse Resp BP Pulse Ox 97.6 F 92 22 122/38 97 05/29/17 11:22 05/29/17 11:22 05/29/17 11:05/29/17 11:22 05/29/17 11:22 - General physical appearance well nourished, no distress, other (pale) - Eyes PERRL, normal ocular movement - ENT atraumatic, normocephalic - Neck trachea midline - Respiratory normal expansion, clear to auscultation - Cardiovascular Cardiovascular exam: Present: RRR, no murmurs/rubs/gallops - Abdomen Abdomen general surgery: Present: bowel sounds present, soft, tender (mildly tender to palpation throughout, no rebound or guarding, no palpable masses) - Integumentary Integumentary general surgery: Present: warm and dry, no abnormal pigmentation - Neurologic Present: CN 2-12 grossly intact - Musculoskeletal Present: normal posture - Psychiatric Psychiatric general surgery: Present: A&Ox3, speech is normal Exam Initial Vital Signs Temp Pulse Resp BP Pulse Ox 97.6 F 92 22 122/38 97 05/29/17 11:22 05/29/17 11:22 05/29/17 11:22 05/29/17 11:22 05/29/17 11:22 Results - Labs 05/30/17 00:27 05/30/17 00:27 Abnormal lab results RBC 2.46 M/mcL (4.19-5.50) L 05/30/17 00:27 Hgb 7.2 g/dL (12.9-16.9) L 05/30/17 00:27 Hct 21.8 % (37.5-50.1) L 05/30/17 00:27 RDW 18.0 % (11.5-14.5) H 05/30/17 00:27 Nucleated RBCs/100 WBC 0.2 /100 WBC (0) H 05/29/17 12:08 Polychromasia 1+ (Not Present) A 05/29/17 12:08 Anisocytosis 1+ (Not Present) A 05/29/17 12:08 Rouleaux Present (Not Present) A 05/29/17 12:08 PT 12.6 Seconds (9.4-12.1) H 05/30/17 00:27 Chloride 111 mEq/L (98-109) H 05/30/17 00:27 BUN 56 mg/dL (8-26) H 05/30/17 00:27 Creatinine 1.73 mg/dL (0.72-1.25) H 05/30/17 00:27 Est GFR ( Amer) 46 (> 60) L 05/30/17 00:27 Est GFR (Non-Af Amer) 38 (> 60) L 05/30/17 00:27 BUN/Creatinine Ratio 32 (6-26) H 05/30/17 00:27 Glucose 114 mg/dL (70-99) H 05/30/17 00:27 POC Glucose 153 (58-89) H 05/30/17 11:15 Hemoglobin A1c 5.7 % (-5.6) H 05/30/17 00:27 Calculated Osmolality 308 (280-300) H 05/30/17 00:27 Lactic Acid 3.1 mmol/L (0.5-2.2) H 05/29/17 12:08 Troponin I 0.34 ng/mL (0-0.03) H* 05/30/17 07:55 HDL Cholesterol 26 mg/dL (40-59) L 05/30/17 00:27 Urine Blood Trace (Negative) H 05/29/17 17:55 Stool Occult Blood Positive (Negative) A 05/29/17 14:12 Diabetes panel 05/29/17 05/30/17 05/30/17 Range/Units 21:33 00:27 00:27 Sodium 142 141 (136-145) mEq/L Potassium 4.1 4.0 (3.5-4.5) mEq/L Chloride 110 H 111 H (98-109) mEq/L Carbon Dioxide 22 20 (19-29) mEq/L BUN 59 H 56 H (8-26) mg/dL Creatinine 1.73 H 1.73 H (0.72-1.25) mg/dL Glucose 126 H 114 H (70-99) mg/dL Hemoglobin A1c 5.7 H ( - 5.6) % Calcium 8.9 8.7 (8.6-10.8) mg/dL Triglycerides 133 (< 150) mg/dL HDL Cholesterol 26 L (40-59) mg/dL Calcium panel 05/29/17 05/30/17 Range/Units 21:33 00:27 Calcium 8.9 8.7 (8.6-10.8) mg/dL Pituitary panel 05/29/17 05/30/17 Range/Units 21:33 00:27 Sodium 142 141 (136-145) mEq/L Potassium 4.1 4.0 (3.5-4.5) mEq/L Chloride 110 H 111 H (98-109) mEq/L Carbon Dioxide 22 20 (19-29) mEq/L BUN 59 H 56 H (8-26) mg/dL Creatinine 1.73 H 1.73 H (0.72-1.25) mg/dL Glucose 126 H 114 H (70-99) mg/dL Calcium 8.9 8.7 (8.6-10.8) mg/dL Adrenal panel 05/29/17 05/30/17 Range/Units 21:33 00:27 Sodium 142 141 (136-145) mEq/L Potassium 4.1 4.0 (3.5-4.5) mEq/L Chloride 110 H 111 H (98-109) mEq/L Carbon Dioxide 22 20 (19-29) mEq/L BUN 59 H 56 H (8-26) mg/dL Creatinine 1.73 H 1.73 H (0.72-1.25) mg/dL Glucose 126 H 114 H (70-99) mg/dL Calcium 8.9 8.7 (8.6-10.8) mg/dL All other labs normal. - Imaging CT scan - abdomen: report reviewed, image reviewed CT scan - pelvis: report reviewed, image reviewed - Attending Attestation I examined this patient and my medical decision-making was reviewed with the Resident Physician. I agree with the documented findings, disposition and treatment plan as described except to the extent set forth below.
[2017-05-29] MEDS: Pantoprazole 40 MG in 0.9 % Sodium Chloride Mini Bag 100 ML IVC SCH (18:31)
[2017-05-29] MEDS: Gabapentin 300 MG CAPSULE PO SCH (18:32)
[2017-05-29 18:56] LABS: Bilirubin,Urine Negative (Negative); Blood,Urine Trace (Negative); Clarity,Urine Clear (Clear); Color,Urine Yellow (Yellow); Glucose,Urine (UA) Normal (Normal); Ketones,Urine Negative (Negative); Leukocyte Esterase,Urine Negative (Negative); Nitrite,Urine Negative (Negative); PH,Urine 6.5 pH Units (5.0-8.0); Protein,Urine Negative (Neg-Trace); Specific Gravity,Urine 1.012 (1.010-1.025); Urobilinogen,Urine Normal (Normal)
[2017-05-29 19:14] LABS: RBC,Urine 0-3 per hpf (0-3); WBC,Urine 0-3 per hpf (0-3)
[2017-05-29 21:45] LABS: Basophils % 0.2 %; Eosinophils % 0.3 %; Hemoglobin 6.6 g/dL (12.9-16.9); Immature Granulocytes % 0.6 % (0-4); Immature Platelets 1.9 % (1.1-6.1); Lymphocytes # 1.3 K/mcL (0.6-4.6); Mean Corpuscular Hemoglobin 28.8 pg (28.0-33.3); Mean Corpuscular Volume 87.3 fL (83.0-100.0); Mean Platelet Volume 10.4 fL (9.4-12.4); Monocytes # 0.8 K/mcL (0.0-1.3); Monocytes % 8.3 %; Neutrophils # 7.7 K/mcL (1.6-8.9); Platelet Count 185 K/mcL (140-400); Red Blood Count 2.29 M/mcL (4.19-5.50); Red Cell Distribution Width 18.6 % (11.5-14.5); Segmented Neutrophils % 77.6 %
[2017-05-29] MEDS: hydrALAZINE 25 MG TABLET PO SCH (21:55)
[2017-05-29 21:56] LABS: Calcium 8.9 mg/dL (8.6-10.8); Potassium 4.1 mEq/L (3.5-4.5)
[2017-05-29] MEDS: Insulin LISPRO 300 UNITS/3 ML VIAL SQ SCH (21:56)
[2017-05-30] MEDS: Gabapentin 300 MG CAPSULE PO SCH ×3 (00:38→16:33)
[2017-05-30] MEDS: Pantoprazole 40 MG in 0.9 % Sodium Chloride Mini Bag 100 ML IVC SCH ×5 (00:38→21:23)
[2017-05-30 03:11] LABS: INR 1.2; Prothrombin Time 12.6 Seconds (9.4-12.1)
[2017-05-30 03:12] LABS: Activated Partial Thrombo Time 27.6 Seconds (26.0-36.0)
[2017-05-30] MEDS ORDERED: 0.9 % Sodium Chloride 250 ML ONE ×2 (03:16→16:31)
[2017-05-30 04:55] LABS: Basophils % 0.2 %; Eosinophils % 0.4 %; Hematocrit 21.8 % (37.5-50.1); Hemoglobin 7.2 g/dL (12.9-16.9); Immature Granulocytes % 0.6 % (0-4); Lymphocytes # 1.5 K/mcL (0.6-4.6); Lymphocytes % 14.1 %; Mean Corpuscular Hemoglobin 29.3 pg (28.0-33.3); Mean Corpuscular Volume 88.6 fL (83.0-100.0); Monocytes # 0.9 K/mcL (0.0-1.3); Monocytes % 8.6 %; Neutrophils # 8.1 K/mcL (1.6-8.9); Platelet Count 179 K/mcL (140-400); Red Blood Count 2.46 M/mcL (4.19-5.50); Segmented Neutrophils % 76.1 %
[2017-05-30 04:58] LABS: Hemoglobin A1C 5.7 %
[2017-05-30 05:07] LABS: Calcium 8.7 mg/dL (8.6-10.8); Chol/HDL Ratio 4.6 (0-4.9); Magnesium 1.7 mg/dL (1.6-2.6)
[2017-05-30] MEDS ORDERED: Magnesium Sulfate 2 GM in D5% in Water 100 ML IVPB ONE (07:46)
[2017-05-30] MEDS: Insulin LISPRO 300 UNITS/3 ML VIAL SQ SCH ×4 (08:04→21:27)
[2017-05-30] MEDS: hydrALAZINE 25 MG TABLET PO SCH ×3 (08:11→21:26)
[2017-05-30] MEDS: NIFEdipine XL (24 HR) 60 MG TAB.ER.24 PO SCH (08:11)
[2017-05-30] MEDS: Metoprolol XL (24 HR) Succ 50 MG TAB.ER.24H PO SCH (08:11)
[2017-05-30] MEDS ORDERED: Polyethylene Glycol 3350 255 GM POWDER PO ONE (08:58)
[2017-05-30] MEDS ORDERED: Piperacillin/Tazobactam 3.375 GM in D5% in Water (Mini-Bag+) 100 ML IVPB SCH (10:00)
--- NOTE | 2017-05-30 13:26 | Internal Med Progress Note ---
Date of Encounter: 05/30/17 Time of Encounter: 09:25 - Assessment and plan (1) Anemia Current Visit: Yes Status: Acute Assessment and plan: Acute blood loss anemia. Hemoglobin 7.2 this morning. Patient received 3 units of packed red blood cells yesterday. We will transfuse another unit of packed red blood cells today. Monitor blood counts closely. Surgery and gastroenterology have been consulted. Plan for colonoscopy tomorrow. Beau for complications due to GI bleed and anemia. Qualifiers: Anemia type: other cause Other causes of anemia: acute posthemorrhagic Qualified Code(s): D62 - Acute posthemorrhagic anemia (2) Elevated troponin Current Visit: Yes Status: Acute Assessment and plan: Patient has had a slight rise in troponin to peak of 0.34. Likely related to demand ischemia. No chest pain reported. 2-D echocardiogram done and shows normal ejection fraction with normal wall motions. (3) Bleeding gastrointestinal Current Visit: Yes Status: Acute Assessment and plan: Patient with reported history of melena. Monitor vital signs closely. Monitor blood counts closely. Continue IV PPI. Surgery and gastroenterology have been consulted for evaluation. Qualifiers: GI bleed type/associated pathology: melena Qualified Code(s): K92.1 - Melena (4) Diabetes Current Visit: Yes Status: Chronic Assessment and plan: Blood sugars are fairly controlled. We will continue to monitor. Continue sliding scale insulin. A1c is 5.7%. Qualifiers: Diabetes mellitus type: type 2 Diabetes mellitus complication status: with kidney complications Diabetes mellitus complication detail: with chronic kidney disease Diabetes mellitus chcf insulin use: without chcf use Chronic kidney disease stage: stage 3 (moderate) Qualified Code(s): E11.22 - Type 2 diabetes mellitus with diabetic chronic kidney disease; N18.3 - Chronic kidney disease, stage 3 (moderate) (5) HLD (hyperlipidemia) Current Visit: Yes Status: Chronic Assessment and plan: Lipid profile within normal limits. LDL at goal. Qualifiers: Hyperlipidemia type: pure hypercholesterolemia Qualified Code(s): E78.00 - Pure hypercholesterolemia, unspecified; E78.0 - Pure hypercholesterolemia (6) HTN (hypertension) Current Visit: Yes Status: Chronic Assessment and plan: Blood pressure is elevated. We will place patient back on patient is currently on hydralazine intravenously in addition to Toprol-XL. His MONTEZ inhibitor is on hold due to slight worsening of renal function. Qualifiers: Hypertension type: essential hypertension Qualified Code(s): I10 - Essential (primary) hypertension (7) CKD (chronic kidney disease) stage 3, GFR 30-59 ml/min Current Visit: Yes Status: Acute Assessment and plan: With acute worsening. Creatinine is slightly above baseline. Likely related to anemia and blood loss. We will gently hydrate. Follow renal function closely. Avoid nephrotoxic agents. - Subjective Interval history: Patient is lying in bed and appears comfortable. Very drowsy but easily awakes. Denies any new episodes of GI bleed since this morning. Has not had a bowel movement today. No abdominal pain. No nausea or vomiting. - Constitutional Vitals: Temp Pulse Resp BP Pulse Ox 97.9 F 70 15 145/65 99 05/30/17 11:03 05/30/17 11:03 05/30/17 11:03 05/30/17 11:03 05/30/17 11:03 General appearance: Present: cooperative, mild distress, A&O X 3, pleasant, obese, answers questions appropriately - Respiratory Respiratory exam: Present: CTAB. Absent: accessory muscle use, rales, rhonchi, wheezes - Cardiovascular Cardiovascular exam: Present: RRR, +S1, +S2. Absent: diastolic murmur, gallop, rubs, systolic murmur - GI/Abdominal GI/Abdominal exam: Present: normal bowel sounds, soft, no peritoneal signs. Absent: distended, tenderness - Extremities Exam Extremities exam: Present: warm, radial pulses palpable and symmetrical. Absent : calf tenderness, cyanotic, pedal edema - Neurological Exam Neurological exam: Present: alert, oriented X3, no focal deficits. Absent: facial droop, speech deficit - Skin Skin exam: Present: dry, intact, pallor Internal Medicine: Result - Labs CBC & Chem 7: 05/30/17 00:27 05/30/17 00:27 Labs: Short CBC 05/29/17 05/30/17 Range/Units 21:33 00:27 WBC 9.9 10.7 (4.3-11.1) K/mcL Hgb 6.6 L 7.2 L (12.9-16.9) g/dL Hct 20.0 L 21.8 L (37.5-50.1) % Plt Count 185 179 (140-400) K/mcL Neutrophils # 7.7 8.1 (1.6-8.9) K/mcL BMP 05/29/17 05/30/17 21:33 00:27 Sodium 142 141 Potassium 4.1 4.0 Chloride 110 H 111 H Carbon Dioxide 22 20 BUN 59 H 56 H Creatinine 1.73 H 1.73 H Glucose 126 H 114 H Calcium 8.9 8.7 Cardiac Enzymes 05/29/17 05/30/17 05/30/17 Range/Units 19:17 00:27 07:55 Troponin I 0.17 H* 0.31 H* 0.34 H* (0-0.03) ng/mL Urine 05/29/17 Range/Units 17:55 Urine Color Yellow (Yellow) Urine Clarity Clear (Clear) Urine pH 6.5 (5.0-8.0) pH Units Ur Specific [place] 1.012 (1.010-1.025) Urine Protein Negative (Neg-Trace) mg/dL Urine Glucose (UA) Normal (Normal) mg/dL - ABG Interpretation ABG results: PT/INR, D-dimer PT 12.6 Seconds (9.4-12.1) H 05/30/17 00:27 Consult Discharge Plan - Plan Referrals: David Sawyer DO [Primary Care Provider] -
[2017-05-30] MEDS: 0.9 % Sodium Chloride 1,000 ML IVC SCH (13:40)
--- NOTE | 2017-05-30 15:11 | General Surgery Progress Note ---
<Susan Simmons Severo - Last Filed: 05/30/17 15:13> Date of Encounter: 05/30/17 Time of Encounter: 15:00 - Assessment and Plan (1) Bleeding gastrointestinal Current Visit: Yes Status: Acute Clear liquid diet today- no red dye NPO after midnight Miralax and Gatorade bowel prep today Plan for colonoscopy with Dr. Arrieta in the next 24 hours Risks, benefits, alternatives and expected outcomes reviewed with the patient and he is in agreement to proceed Follow hgb/hct support with [facility] as needed per medicine service Qualifiers: GI bleed type/associated pathology: melena Qualified Code(s): K92.1 - Melena Subjective Patient reports: no new complaints, tolerating liquids well, voiding w/o difficulty, flatus, bowel movement, blood in stool, afebrile Objective Vital Signs - Last 8 Hours Temp Pulse Resp BP Pulse Ox 05/30/17 11:03 97.9 F 70 15 145/65 99 05/30/17 10:47 97 05/30/17 08:10 98.2 F 70 15 163/74 97 05/30/17 07:40 97 Intake and Output 05/29/17 05/30/17 05/30/17 23:59 07:59 15:59 Intake Total 700 / 700 625 / 625 204 / 204 Output Total 1450 / 1450 800 / 800 425 / 425 Balance -750 / -750 -175 / -175 -221 / -221 Intake: IV Fluids 275 / 275 204 / 204 0.9 % Sodium Chloride 250 75 / 75 ML As .ROUTE .STK-MED ONE Rx#:[id number] Protonix 40 MG In 0.9 % 200 / 200 100 / 100 Sodium Chloride (Mini-Bag +) 100 ML @ 20 mls/hr IVC .Q5H RYAN Rx#: [id number] Magnesium Sulfate 2 GM In 104 / 104 Dextrose 5% 100 ML @ 100 mls/hr IVPB ONCE ONE Rx# :[id number] Blood Product 700 / 700 350 / 350 Rbcs Leuko Poor As-1 350 / 350 Unit [id number] Rbcs Leuko Poor As-1 Irr 350 / 350 350 / 350 Unit [id number] Output: Catheter 1450 / 1450 800 / 800 425 / 425 Gastric Drainage 0 / 0 Other: Stool Size Moderate Large Large Stool Consistency liquid liquid liquid formed Stool Characteristics Normal for Patient Seedy Stool Color Brown Brown Dark Red Blood # Voids 1 # Bowel Movements 1 1 1 Weight 94.3 kg 95.04 kg 95.04 kg Blood Glucose* 166 116 153 Patient Weight 05/30/17 23:59 Weight 95.04 kg - General physical appearance well developed, well nourished, no distress - Eyes normal ocular movement - ENT normal mucosa, atraumatic, normocephalic - Neck Neck exam: trachea midline - Respiratory normal respiratory effort, clear to auscultation - Cardiovascular Cardiovascular exam: Present: RRR - Abdomen Abdomen: Present: bowel sounds present, soft, non tender - Neurologic CN 2-12 grossly intact - Musculoskeletal normal gait, normal posture - Psychiatric oriented to time, oriented to person, oriented to place, speech is normal, memory intact - Labs 05/30/17 00:27 05/30/17 00:27 Diabetes panel 05/29/17 05/30/17 05/30/17 Range/Units 21:33 00:27 00:27 Sodium 142 141 (136-145) mEq/L Potassium 4.1 4.0 (3.5-4.5) mEq/L Chloride 110 H 111 H (98-109) mEq/L Carbon Dioxide 22 20 (19-29) mEq/L BUN 59 H 56 H (8-26) mg/dL Creatinine 1.73 H 1.73 H (0.72-1.25) mg/dL Glucose 126 H 114 H (70-99) mg/dL Hemoglobin A1c 5.7 H ( - 5.6) % Calcium 8.9 8.7 (8.6-10.8) mg/dL Triglycerides 133 (< 150) mg/dL HDL Cholesterol 26 L (40-59) mg/dL Calcium panel 05/29/17 05/30/17 Range/Units 21:33 00:27 Calcium 8.9 8.7 (8.6-10.8) mg/dL Pituitary panel 05/29/17 05/30/17 Range/Units 21:33 00:27 Sodium 142 141 (136-145) mEq/L Potassium 4.1 4.0 (3.5-4.5) mEq/L Chloride 110 H 111 H (98-109) mEq/L Carbon Dioxide 22 20 (19-29) mEq/L BUN 59 H 56 H (8-26) mg/dL Creatinine 1.73 H 1.73 H (0.72-1.25) mg/dL Glucose 126 H 114 H (70-99) mg/dL Calcium 8.9 8.7 (8.6-10.8) mg/dL Adrenal panel 05/29/17 05/30/17 Range/Units 21:33 00:27 Sodium 142 141 (136-145) mEq/L Potassium 4.1 4.0 (3.5-4.5) mEq/L Chloride 110 H 111 H (98-109) mEq/L Carbon Dioxide 22 20 (19-29) mEq/L BUN 59 H 56 H (8-26) mg/dL Creatinine 1.73 H 1.73 H (0.72-1.25) mg/dL Glucose 126 H 114 H (70-99) mg/dL Calcium 8.9 8.7 (8.6-10.8) mg/dL Consult Discharge Plan - Plan Referrals: David Sawyer, [Primary Care Provider] - <Velma Arrieta - Last Filed: 05/30/17 16:36> Date of Encounter: 05/30/17 - Assessment and Plan (1) Melena Current Visit: Yes Status: Acute bowel prep colonosocpy and EGD once stable and seen by cardiology (2) Anemia Current Visit: Yes Status: Acute Qualifiers: Anemia type: other cause Other causes of anemia: acute posthemorrhagic Qualified Code(s): D62 - Acute posthemorrhagic anemia (3) Bleeding gastrointestinal Current Visit: Yes Status: Acute Qualifiers: GI bleed type/associated pathology: melena Qualified Code(s): K92.1 - Melena (4) Elevated troponin Current Visit: Yes Status: Acute Subjective Patient reports: no new complaints, tolerating liquids well, voiding w/o difficulty, flatus, bowel movement, blood in stool (melena) Objective Vital Signs - Last 8 Hours Temp Pulse Resp BP Pulse Ox 05/30/17 15:55 97.3 F L 70 15 102/58 96 05/30/17 11:03 97.9 F 70 15 145/65 99 05/30/17 10:47 97 Intake and Output 05/30/17 05/30/17 05/30/17 07:59 15:59 23:59 Intake Total 625 / 625 204 / 204 Output Total 800 / 800 425 / 425 Balance -175 / -175 -221 / -221 Intake: IV Fluids 275 / 275 0.9 % Sodium Chloride 250 75 / 75 ML As .ROUTE .STK-MED ONE Rx#:[id number] Protonix 40 MG In 0.9 % 200 / 200 100 / 100 Sodium Chloride (Mini-Bag +) 100 ML @ 20 mls/hr IVC .Q5H RYAN Rx#: [id number] Magnesium Sulfate 2 GM In 104 / 104 Dextrose 5% 100 ML @ 100 mls/hr IVPB ONCE ONE Rx# :[id number] Blood Product 350 / 350 Rbcs Leuko Poor As-1 Irr 350 / 350 Unit [id number] Output: Catheter 800 / 800 425 / 425 Other: Stool Size Large Large Stool Consistency liquid liquid formed Stool Characteristics Seedy Stool Color Brown Dark Red Blood # Voids 1 # Bowel Movements 1 1 Weight 95.04 kg 95.04 kg Blood Glucose* 116 153 Patient Weight 05/30/17 23:59 Weight 95.04 kg - General physical appearance well developed, well nourished, no distress - Eyes normal ocular movement - ENT normal mucosa, normocephalic - Neck Neck exam: trachea midline - Respiratory normal respiratory effort - Cardiovascular Cardiovascular exam: Present: RRR - Abdomen Abdomen: Present: bowel sounds present, soft, non tender - Integumentary other (pale) - Neurologic CN 2-12 grossly intact - Musculoskeletal normal posture - Psychiatric oriented to time, oriented to person, memory intact - Labs 05/30/17 00:27 05/30/17 00:27 Diabetes panel 05/29/17 05/30/17 05/30/17 Range/Units 21:33 00:27 00:27 Sodium 142 141 (136-145) mEq/L Potassium 4.1 4.0 (3.5-4.5) mEq/L Chloride 110 H 111 H (98-109) mEq/L Carbon Dioxide 22 20 (19-29) mEq/L BUN 59 H 56 H (8-26) mg/dL Creatinine 1.73 H 1.73 H (0.72-1.25) mg/dL Glucose 126 H 114 H (70-99) mg/dL Hemoglobin A1c 5.7 H ( - 5.6) % Calcium 8.9 8.7 (8.6-10.8) mg/dL Triglycerides 133 (< 150) mg/dL HDL Cholesterol 26 L (40-59) mg/dL Calcium panel 05/29/17 05/30/17 Range/Units 21:33 00:27 Calcium 8.9 8.7 (8.6-10.8) mg/dL Pituitary panel 05/29/17 05/30/17 Range/Units 21:33 00:27 Sodium 142 141 (136-145) mEq/L Potassium 4.1 4.0 (3.5-4.5) mEq/L Chloride 110 H 111 H (98-109) mEq/L Carbon Dioxide 22 20 (19-29) mEq/L BUN 59 H 56 H (8-26) mg/dL Creatinine 1.73 H 1.73 H (0.72-1.25) mg/dL Glucose 126 H 114 H (70-99) mg/dL Calcium 8.9 8.7 (8.6-10.8) mg/dL Adrenal panel 05/29/17 05/30/17 Range/Units 21:33 00:27 Sodium 142 141 (136-145) mEq/L Potassium 4.1 4.0 (3.5-4.5) mEq/L Chloride 110 H 111 H (98-109) mEq/L Carbon Dioxide 22 20 (19-29) mEq/L BUN 59 H 56 H (8-26) mg/dL Creatinine 1.73 H 1.73 H (0.72-1.25) mg/dL Glucose 126 H 114 H (70-99) mg/dL Calcium 8.9 8.7 (8.6-10.8) mg/dL - Attending Attestation I have personally performed a face to face evaluation on this patient. I have reviewed and agree with the care plan. History and Exam by me shows: please see consult for today
[2017-05-30] MEDS ORDERED: Furosemide 20 MG/2 ML VIAL IVP ONE (16:25)
--- NOTE | 2017-05-30 18:03 | Electrocardiograph Report ---
[address] [place], [place] [address] Test Date: 2017-05-29 Pat Name: Ranjit Nix Department: 115 Room: 3A52 Gender: M Junior Art Director: : [id number] Requested By: José Manuel Balderas Order Number: [id number] Reading MD: Judy Garber Measurements Intervals [place] Rate: 68 P: [place]: 0 QRS: -56 QRSD: 187 T: 108 QT: 494 QTc: 512 Interpretive Statements ELECTRONIC VENTRICULAR PACEMAKER ABNORMAL RHYTHM ECG Electronically Signed On 05-30-2017 18:01:34 EDT by Judy Garber
--- NOTE | 2017-05-30 18:48 | Cardiology Consult Note ---
Date of Encounter: 05/30/17 Time of Encounter: 18:45 Assessment and Plan (1) Preop cardiovascular exam Current Visit: Yes Status: Acute Patient not having active chest pain or heart failure symptoms. ECG paced rhythm. Mild troponin elevation likely related to anemia, CKD. Patient is not a good candidate for an ischemic evaluation due to active bleeding. Given advanced age and limited functional capacity, he represents a low to moderate risk candidate for this low risk procedure. Recommend proceed with this necessary procedure without further cardiac testing. (2) Elevated troponin Current Visit: Yes Status: Acute Discussion w patient/family: The assessment and plan as outlined above was discussed with the patient and/or family members who expressed understanding and agreement. All questions were answered. Thank you for involving us in the care of your patient. Please call with any questions. History of Present Illness Consult date: 05/30/17 Requesting physician: Velma Arrieta Consult reason: Preop Chief complaint: Preop History of present illness: Mr. Nix is a 81 year old male currently being treated for symptomatic anemia. 05/29 Hg 5.3. Denies prior [place] - never required cardiac catheterization. Recent TTE - LVEF 60%, mild to moderate VHD. No active chest pain or heart failure symptoms. Functional capacity limited due to age and generalized debility, but no chest pain reported. Past Med Surg Social Fam HX - Past Medical History Medical history: CHF, coronary artery disease, dementia, diabetes, hyperlipidemia, hypertension, pulmonary embolus, thyroid disease Psychiatric history: no psych history - Past Surgical History Surgical History: orthopedic, other (Cervical fixation 2, Bilateral knees) - Social History Smoking Status: Former smoker Packs per day: 1 PPD - reports quitting in 1951 Smokeless Tobacco Status: No Alcohol use: occasionally Drug use: none - Family History Father Race: Family Member Ethnicity: Non- Living Status: Age at : 80 Cause of : Old age Hx Family Medical Disorders: No Mother Race: Family Member Ethnicity: Non- Living Status: Age at : 64 Cause of : HD Hx Family Cardiac Disorders: Yes (HD) Brother Race: Family Member Ethnicity: Non- Living Status: Age at : 42 Cause of : [place] Hx Family Cardiac Disorders: Yes (HD, [place]) Sister Race: Family Member Ethnicity: Non- Living Status: Age at : 72 Cause of : CHF Hx Family Cardiac Disorders: Yes (HD, CHF) Medications and Allergies Doxazosin [Cardura] 4 mg PO DAILY 05/29/16 [History] Furosemide [Lasix] 40 mg PO DAILY 05/29/16 [History] Irbesartan [Avapro] 150 mg PO DAILY 05/29/16 [History] Levothyroxine [Synthroid] 112 mcg PO DAILY 05/29/16 [History] Pramipexole [Mirapex] 0.25 mg PO HS 05/29/16 [History] hydrALAZINE [HydrALAZINE] 25 mg PO TID 05/29/16 [History] Albuterol Sulfate [Albuterol Inhaler] 2 puff IH Q4-6H PRN 11/03/16 [History] Aspirin [Lo-Dose Aspirin EC] 81 mg PO DAILY 11/03/16 [History] Meclizine [Antivert] 25 mg PO DAILY 11/03/16 [History] Ferrous Sulfate [Iron] 325 mg PO BID 05/29/17 [History] Gabapentin [Neurontin] 300 mg PO Q8H 05/29/17 [History] HYDROcodone/Acet 5/325 mg [[place] 5-325 mg] 1 tab PO Q6H PRN 05/29/17 [History] Metoprolol XL (24 HR) Succ [Toprol XL] 50 mg PO DAILY 05/29/17 [History] NIFEdipine XL (24 HR) [Procardia XL] 60 mg PO DAILY 05/29/17 [History] Potassium Chloride [K-Tab ER] 20 meq PO DAILY 05/29/17 [History] Ranitidine HCl [Heartburn Relief] 150 mg PO BID PRN 05/29/17 [History] SitaGLIPtin [Januvia] 100 mg PO DAILY 05/29/17 [History] clonazePAM [Klonopin] 0.5 mg PO BID PRN 05/29/17 [History] 3 Allergy/AdvReac Type Severity Reaction Status Date / Time No Known Allergies Allergy Verified 05/29/16 18:05 All Systems Review: A 10-system review of systems was performed and is negative for pertinent findings except as documented above in the HPI. - Cardiovascular Cardiovascular: as per HPI - Gastrointestinal Gastrointestinal: coffee ground emesis, melena, nausea Physical Examination Vital Signs, Last 4 Hours Temp Pulse Resp BP Pulse Ox 05/30/17 17:25 97.4 F L 70 16 123/66 05/30/17 17:10 97.6 F 70 16 125/64 100 05/30/17 15:55 97.3 F L 70 15 102/58 96 General: Conversant, No Apparent Distress HEENT: Atraumatic, Normocephaly, Mucus Membranes Moist Neck: No JVD Cardiac: Reg Rate and Rhythm, Normal S1 and S2, Other (Grade 2 carley) Lungs: Normal Breath Sounds Neuro: Alert and responsive Abdomen: Soft, Non-Tender, Other (obese) Skin: No rashes noted on visualized skin Musculoskeletal: No Chest Wall Tenderness Extremities: No Clubbing, No Cyanosis, No Edema Results 05/30/17 00:27 05/30/17 00:27 Lab Results 05/29/17 05/29/17 05/29/17 19:17 21:33 21:33 WBC 9.9 Hgb 6.6 L Hct 20.0 L Plt Count 185 INR APTT Sodium 142 Potassium 4.1 Chloride 110 H Carbon Dioxide 22 BUN 59 H Creatinine 1.73 H Glucose 126 H Calcium 8.9 Magnesium Troponin I 0.17 H* 05/30/17 05/30/17 05/30/17 00:27 00:27 00:27 WBC 10.7 Hgb 7.2 L Hct 21.8 L Plt Count 179 INR 1.2 APTT 27.6 Sodium Potassium Chloride Carbon Dioxide BUN Creatinine Glucose Calcium Magnesium Troponin I 0.31 H* 05/30/17 05/30/17 00:27 07:55 WBC Hgb Hct Plt Count INR APTT Sodium 141 Potassium 4.0 Chloride 111 H Carbon Dioxide 20 BUN 56 H Creatinine 1.73 H Glucose 114 H Calcium 8.7 Magnesium 1.7 Troponin I 0.34 H* - Imaging and Cardiology Echo: report reviewed - EKG Interpretation EKG results cardiology: personally reviewed (paced rhythm) Consult Discharge Plan - Plan Referrals: David Sawyer DO [Primary Care Provider] -
[2017-05-30] MEDS ORDERED: 0.9 % Sodium Chloride Mini Bag 100 ML ONE (21:18)
[2017-05-31] MEDS: Gabapentin 300 MG CAPSULE PO SCH ×3 (01:14→17:20)
[2017-05-31 01:26] LABS: Basophils % 0.3 %; Eosinophils # 0.2 K/mcL (0.0-0.6); Eosinophils % 2.2 %; Hematocrit 27.6 % (37.5-50.1); Immature Granulocytes % 0.6 % (0-4); Lymphocytes # 1.1 K/mcL (0.6-4.6); Lymphocytes % 14.1 %; Mean Corpuscular HGB Conc 33.3 g/dL (31.6-35.5); Mean Corpuscular Hemoglobin 28.8 pg (28.0-33.3); Mean Corpuscular Volume 86.5 fL (83.0-100.0); Mean Platelet Volume 9.6 fL (9.4-12.4); Monocytes # 0.8 K/mcL (0.0-1.3); Monocytes % 10.3 %; Neutrophils # 5.7 K/mcL (1.6-8.9); Platelet Count 163 K/mcL (140-400); Red Blood Count 3.19 M/mcL (4.19-5.50); Red Cell Distribution Width 17.7 % (11.5-14.5); Segmented Neutrophils % 72.5 %
[2017-05-31 01:28] LABS: Hemoglobin 9.2 g/dL (12.9-16.9)
[2017-05-31 01:41] LABS: BUN/Creatinine Ratio 22 (6-26); Calcium 8.4 mg/dL (8.6-10.8); Carbon Dioxide 21 mEq/L (19-29); Chloride 109 mEq/L (98-109); Glucose 105 mg/dL (70-99); Osmolality,Calculated 293 (280-300); Potassium 3.6 mEq/L (3.5-4.5); Sodium 139 mEq/L (136-145); eGFR For African Americans > 60 (> 60); eGFR For Non-African Americans 56 (> 60)
[2017-05-31 01:42] LABS: Blood Urea Nitrogen 27 mg/dL (8-26)
[2017-05-31] MEDS: Pantoprazole 40 MG in 0.9 % Sodium Chloride Mini Bag 100 ML IVC SCH ×4 (01:50→13:30)
[2017-05-31] MEDS: 0.9 % Sodium Chloride 1,000 ML IVC SCH ×2 (06:06→09:30)
[2017-05-31] MEDS: Insulin LISPRO 300 UNITS/3 ML VIAL SQ SCH ×4 (07:56→21:10)
[2017-05-31] MEDS: hydrALAZINE 25 MG TABLET PO SCH ×3 (07:59→21:10)
[2017-05-31] MEDS: Metoprolol XL (24 HR) Succ 50 MG TAB.ER.24H PO SCH (07:59)
[2017-05-31] MEDS: NIFEdipine XL (24 HR) 60 MG TAB.ER.24 PO SCH (07:59)
[2017-05-31] MEDS ORDERED: *HR* FentaNYL (PF) 100 MCG/2 ML VIAL ONE (11:33)
[2017-05-31] MEDS ORDERED: *HR* Midazolam HCl 5 MG/5 ML VIAL IVP ONE (11:33)
[2017-05-31] MEDS ORDERED: *HR* Promethazine 25 MG/ML VIAL ONE (11:33)
[2017-05-31] MEDS ORDERED: 0.9 % Sodium Chloride 500 ML IVC SCH (11:45)
[2017-05-31] MEDS ORDERED: Tetracaine/Benzocaine/Butamben 200MG/SPRAY (100SPY/BOT) MM ONE (12:07)
[2017-05-31] MEDS ORDERED: Simethicone 40 MG/0.6 ML MLS IR ONE (12:07)
--- NOTE | 2017-05-31 12:08 | Pre-Sedation Evaluation ---
Pre-sedation evaluation - Pre-sedation checklist Date of procedure: 05/31/17 Procedure: EGD, Colonoscopy Recent Vitals: Last Vital Signs Temp 97.8 F 05/31/17 11:42 Pulse 70 05/31/17 11:58 Resp 18 05/31/17 11:58 BP 143/69 05/31/17 11:58 Pulse Ox 98 05/31/17 11:58 H&P (including ROS) documented in medical record: Yes Previous reaction to sedatives/anesthetics: No Dietary Status: NPO after Midnight Dentition: No loose teeth or bridges ASA Classification *see protocol: CLASS III-Severe systemic disease Plan of Care: Pt appropriate candidate for procedure/moderate/conscious sedation , Risks/benefits of procedure/sedation discussed w/ patient/family
[2017-05-31] MEDS: *HR* FentaNYL (PF) 100 MCG/2 ML VIAL IVP PRN ×3 (12:15→12:30)
[2017-05-31] MEDS: *HR* Midazolam HCl 5 MG/5 ML VIAL IVP PRN ×2 (12:15→12:29)
--- NOTE | 2017-05-31 14:43 | Event Note ---
Date of Encounter: 05/31/17 Time of Encounter: 14:41 EGD showed duodenal ulcer without any stigmata of bleeding, duodenitis, mild gastritis, gastric polyps, very small hiatal hernia, biopsies for H pylori done/ JOESPH colonoscopy with 5 polyps in ascending colon, 1 at descending and splenic flexure recommend cardiac diet carafate 1 gm po QID x 1 month (120 pills Protonix 40 mg po bid x 1 month then 40 mg po daily
[2017-05-31] MEDS: Sucralfate 1 GM TABLET PO SCH ×3 (14:47→21:10)
--- NOTE | 2017-05-31 15:08 | Internal Med Progress Note ---
Date of Encounter: 05/31/17 Time of Encounter: 15:08 - Assessment and plan (1) Anemia Current Visit: Yes Status: Acute Assessment and plan: Due to GI bleed. Improved after blood transfusion. Patient has received 6 units of packed red blood cells since admission. Hemoglobin today is 9.2. We will continue to monitor. Qualifiers: Anemia type: other cause Other causes of anemia: acute posthemorrhagic Qualified Code(s): D62 - Acute posthemorrhagic anemia (2) Bleeding gastrointestinal Current Visit: Yes Status: Acute Assessment and plan: Colonoscopy and EGD planned for today. We will follow results. On PPI. Moderate risk for complications. Qualifiers: GI bleed type/associated pathology: melena Qualified Code(s): K92.1 - Melena (3) Elevated troponin Current Visit: Yes Status: Acute Assessment and plan: Patient was evaluated by cardiology. At this time recommended no ischemic workup due to active bleeding. Troponin elevation likely related to anemia, demand ischemia and chronic kidney disease. (4) Diabetes Current Visit: Yes Status: Chronic Assessment and plan: Controlled. Currently on low correctional sliding scale insulin. Will continue this regimen for now as blood sugars are well controlled. Qualifiers: Diabetes mellitus type: type 2 Diabetes mellitus complication status: with kidney complications Diabetes mellitus complication detail: with chronic kidney disease Diabetes mellitus tank terminal gauger insulin use: without tank terminal gauger use Chronic kidney disease stage: stage 3 (moderate) Qualified Code(s): E11.22 - Type 2 diabetes mellitus with diabetic chronic kidney disease; N18.3 - Chronic kidney disease, stage 3 (moderate) (5) HTN (hypertension) Current Visit: Yes Status: Chronic Assessment and plan: Well-controlled Qualifiers: Hypertension type: essential hypertension Qualified Code(s): I10 - Essential (primary) hypertension (6) CKD (chronic kidney disease) stage 3, GFR 30-59 ml/min Current Visit: Yes Status: Chronic Assessment and plan: Creatinine is at baseline. - Subjective Interval history: Patient was seen earlier this morning and was sitting up in bed. Appeared comfortable. Has taken bowel prep and has not noticed any further episodes of GI bleed. Denies any abdominal pain. No nausea or vomiting. No hematemesis. - Constitutional Vitals: Temp Pulse Resp BP Pulse Ox 97.3 F L 70 16 127/66 98 05/31/17 13:43 05/31/17 13:43 05/31/17 13:43 05/31/17 13:43 05/31/17 13:43 General appearance: Present: cooperative, A&O X 3, pleasant, no acute distress, obese, answers questions appropriately - Neck Neck exam general surgery: Present: supple, trachea midline. Absent: lymphadenopathy - Respiratory Respiratory exam: Present: CTAB. Absent: accessory muscle use, rales, rhonchi, wheezes - Cardiovascular Cardiovascular exam: Present: RRR, +S1, +S2. Absent: diastolic murmur, gallop, rubs, systolic murmur - GI/Abdominal GI/Abdominal exam: Present: normal bowel sounds, soft, no peritoneal signs. Absent: distended, tenderness - Extremities Exam Extremities exam: Present: warm, radial pulses palpable and symmetrical. Absent : calf tenderness, cyanotic, pedal edema - Skin Skin exam: Present: dry, intact, pallor Internal Medicine: Result - Labs CBC & Chem 7: 05/31/17 01:13 05/31/17 01:13 Labs: Short CBC 05/31/17 Range/Units 01:13 WBC 7.9 (4.3-11.1) K/mcL Hgb 9.2 L D (12.9-16.9) g/dL Hct 27.6 L (37.5-50.1) % Plt Count 163 (140-400) K/mcL Neutrophils # 5.7 (1.6-8.9) K/mcL BMP 05/31/17 01:13 Sodium 139 Potassium 3.6 Chloride 109 Carbon Dioxide 21 BUN 27 H D Creatinine 1.24 Glucose 105 H Calcium 8.4 L - ABG Interpretation ABG results: PT/INR, D-dimer PT 12.6 Seconds (9.4-12.1) H 05/30/17 00:27 Consult Discharge Plan - Plan Referrals: David Sawyer DO [Primary Care Provider] -
[2017-06-01 05:19] LABS: Basophils % 0.2 %; Eosinophils # 0.1 K/mcL (0.0-0.6); Eosinophils % 1.7 %; Hemoglobin 9.3 g/dL (12.9-16.9); Immature Granulocytes % 0.5 % (0-4); Lymphocytes # 1.2 K/mcL (0.6-4.6); Lymphocytes % 14.7 %; Mean Corpuscular HGB Conc 33.2 g/dL (31.6-35.5); Mean Corpuscular Hemoglobin 29.2 pg (28.0-33.3); Mean Corpuscular Volume 88.1 fL (83.0-100.0); Mean Platelet Volume 10.3 fL (9.4-12.4); Monocytes # 0.8 K/mcL (0.0-1.3); Monocytes % 9.4 %; Platelet Count 188 K/mcL (140-400); Red Blood Count 3.18 M/mcL (4.19-5.50); Red Cell Distribution Width 18.2 % (11.5-14.5); Segmented Neutrophils % 73.5 %
[2017-06-01] MEDS: Insulin LISPRO 300 UNITS/3 ML VIAL SQ SCH ×2 (07:38→11:44)
[2017-06-01] MEDS: Sucralfate 1 GM TABLET PO SCH ×2 (08:11→11:44)
[2017-06-01] MEDS: hydrALAZINE 25 MG TABLET PO SCH (08:11)
[2017-06-01] MEDS: Gabapentin 300 MG CAPSULE PO SCH ×2 (08:11)
[2017-06-01] MEDS: Metoprolol XL (24 HR) Succ 50 MG TAB.ER.24H PO SCH (08:11)
[2017-06-01] MEDS: NIFEdipine XL (24 HR) 60 MG TAB.ER.24 PO SCH (08:11)
[2017-06-01] MEDS ORDERED: Nystatin POWDER 30 GM BOTTLE TP SCH (09:00)
--- NOTE | 2017-06-01 10:41 | General Surgery Progress Note ---
Date of Encounter: 06/01/17 Time of Encounter: 09:00 Subjective Patient reports: no new complaints, feels better, tolerating a regular diet, flatus, bowel movement, afebrile Objective Vital Signs - Last 8 Hours Temp Pulse Resp BP Pulse Ox 06/01/17 07:45 98 06/01/17 06:53 97.9 F 79 20 130/62 98 06/01/17 05:08 98.0 F 69 20 150/71 96 06/01/17 04:45 70 Intake and Output 05/31/17 06/01/17 06/01/17 23:59 07:59 15:59 Intake Total 940 / 940 0 / 0 Output Total 400 / 400 600 / 600 200 / 200 Balance 540 / 540 -600 / -600 -200 / -200 Intake: IV Fluids 700 / 700 0.9 % Sodium Chloride 1, 700 / 700 000 ML @ 100 mls/hr IVC . Q10H RYAN Rx#:[id number] Oral 240 / 240 0 / 0 Output: Urine 400 / 400 600 / 600 200 / 200 Other: Meal Dinner Percent of Meal Consumed 75% Stool Size Small Smear Stool Consistency loose soft Stool Characteristics Normal for Patient Stool Color Green Brown # Voids 1 # Bowel Movements 1 1 Weight 94.9 kg Blood Glucose* 164 107 Patient Weight 06/01/17 23:59 Weight 94.9 kg - General physical appearance well developed, well nourished, no distress - Eyes normal ocular movement - ENT atraumatic, normocephalic - Neck Neck exam: trachea midline - Respiratory normal expansion, normal respiratory effort, clear to auscultation - Cardiovascular Cardiovascular exam: Present: RRR, murmurs (3/6 systolic murmur) - Abdomen Abdomen: Present: bowel sounds present, soft, non tender - Musculoskeletal normal posture - Psychiatric speech is normal - Labs 06/01/17 03:58 05/31/17 01:13 Consult Discharge Plan - Plan Referrals: David Sawyer DO [Primary Care Provider] -
--- NOTE | 2017-06-01 10:41 | Discharge Summary ---
Date of Encounter: 06/01/17 Time of Encounter: 08:30 - Discharge Diagnosis (1) Anemia Priority: Primary Status: Acute Qualifiers: Anemia type: other cause Other causes of anemia: acute posthemorrhagic Qualified Code(s): D62 - Acute posthemorrhagic anemia (2) Bleeding gastrointestinal Priority: Secondary Status: Acute Qualifiers: GI bleed type/associated pathology: gastritis Gastritis type: acute gastritis Qualified Code(s): K29.01 - Acute gastritis with bleeding (3) Elevated troponin Priority: Secondary Status: Acute (4) Diabetes Priority: Secondary Status: Chronic Qualifiers: Diabetes mellitus type: type 2 Diabetes mellitus complication status: with kidney complications Diabetes mellitus complication detail: with chronic kidney disease Diabetes mellitus fpc insulin use: without intermediate project manager use Chronic kidney disease stage: stage 3 (moderate) Qualified Code(s): E11.22 - Type 2 diabetes mellitus with diabetic chronic kidney disease; N18.3 - Chronic kidney disease, stage 3 (moderate) (5) HTN (hypertension) Priority: Secondary Status: Chronic Qualifiers: Hypertension type: essential hypertension Qualified Code(s): I10 - Essential (primary) hypertension (6) CKD (chronic kidney disease) stage 3, GFR 30-59 ml/min Priority: Secondary Status: Chronic (7) Duodenal ulcer Priority: Secondary Status: Acute - Discharge Medications Prescriptions: Nystatin POWDER [Nystop] 1 appl TP BID #1 bottle Pantoprazole Sodium [Protonix] 40 mg PO BID #60 tablet. Sucralfate [Carafate] 1 gm PO QIDAC #120 tab Home Medications: Doxazosin [Cardura] 4 mg PO DAILY 05/29/16 [History] Furosemide [Lasix] 40 mg PO DAILY 05/29/16 [History] Irbesartan [Avapro] 150 mg PO DAILY 05/29/16 [History] Levothyroxine [Synthroid] 112 mcg PO DAILY 05/29/16 [History] Pramipexole [Mirapex] 0.25 mg PO HS 05/29/16 [History] hydrALAZINE [HydrALAZINE] 25 mg PO TID 05/29/16 [History] Albuterol Sulfate [Albuterol Inhaler] 2 puff IH Q4-6H PRN 11/03/16 [History] Aspirin [Lo-Dose Aspirin EC] 81 mg PO DAILY 11/03/16 [History] Meclizine [Antivert] 25 mg PO DAILY 11/03/16 [History] Ferrous Sulfate [Iron] 325 mg PO BID 05/29/17 [History] Gabapentin [Neurontin] 300 mg PO Q8H 05/29/17 [History] HYDROcodone/Acet 5/325 mg [[place] 5-325 mg] 1 tab PO Q6H PRN 05/29/17 [History] Metoprolol XL (24 HR) Succ [Toprol Xl] 50 mg PO DAILY 05/29/17 [History] NIFEdipine XL (24 HR) [Procardia XL] 60 mg PO DAILY 05/29/17 [History] Potassium Chloride [K-Tab ER] 20 meq PO DAILY 05/29/17 [History] SitaGLIPtin [Januvia] 100 mg PO DAILY 05/29/17 [History] clonazePAM [Klonopin] 0.5 mg PO BID PRN 05/29/17 [History] Nystatin POWDER [Nystop] 1 appl TP BID #1 bottle 06/01/17 [Rx] Pantoprazole Sodium [Protonix] 40 mg PO BID #60 tablet. 06/01/17 [Rx] Sucralfate [Carafate] 1 gm PO QIDAC #120 tab 06/01/17 [Rx] Allergies/Adverse Reactions: 3 Allergy/AdvReac Type Severity Reaction Status Date / Time No Known Allergies Allergy Verified 05/29/16 18:05 Procedures/tests Complete & Pending: Procedures Performed prior 72 hours Category Date Time Status ECG 12 lead ECG [ECG] Stat Y 05/29/17 16:14 Completed EKG [ECG 12 lead ECG] [ECG] Stat Y 05/29/17 19:58 Ordered EV echocardiogram Routine Y 05/30/17 20:31 Completed Date of admission: 05/29/17 15:14 Primary care physician: David Sawyer DO Consults: 05/29/17 16:25 Consult to Gastroenterology [CONS] Routine Consulting Provider: Gastroenterology Kim Reason for Consult: 81M patient w/Hgb of 5.2 and three episodes of coffe- ground stol last night. Weak, SOB, receiving 2 units with one more ordered. NG tube yields no bleeding. Last colonoscopy was in late 1980s. Call Completed: Yes 05/29/17 18:45 Consult to Nutrition [CONS] Routine Comment: Consulting Provider: NUTRITION Reason for Dietary Consult: Diet Education 05/30/17 08:38 Consult to Physical Therapy [CONS] Routine Comment: Evaluate, develop and implement POC Reason for Consult: discharge planning OT [Consult to Occupational Therapy] [CONS] Routine Comment: Evaluate, develop and implement POC Reason for Consult: discharge planning 05/30/17 09:56 Consult to Surgery [CONS] Routine Consulting Provider: Surgery [facility] Reason for Consult: GI Bleed Time Notified: 09:56 Call Completed: Yes 05/30/17 16:27 Consult to Cardiology [CONS] Routine Comment: Consulting Provider: Cardiology [place] Reason for Consult: elevated troponin, Hx cardiac dz, blood loss anemia Time Notified: 16:27 Call Completed: Yes 05/30/17 17:11 Consult to Cardiology [CONS] Stat Comment: Consulting Provider: Cardiology [place] Reason for Consult: 81 yo M with PMH of diabetes Type 2, CHF, CAD, hypertension presents with bloody diarrhea for 2 days. +FOBT. Hb 5.2 and received 2 units of blood since admission; current Hb 7.2. Patient has two consecutive + readings for Troponin I ( 0.34/0.17). He is scheduled for colonoscopy tomorrow morning. Consulting cardiology for pre-operative evaluation. Thank you Call Completed: Yes Discharging clinician: Mazin Stewart Anticipated date of discharge: 06/01/17 - Patient Status Disposition: Home, Self-Care Condition: Good Functional capacity at discharge: independent ambulation Overall status at discharge: patient is progressing back to baseline - Discharge Instructions Follow Up With: Velma Arrieta MD [Partnered Physician] - (Office will call you during bussiness hours for your 1-2 week follow up appointment and time, if they do not call by Saturday, call [phone] and schedule for hodpital follow up 1-2 weeks from your discharge date) David Sawyer DO [Primary Care Provider] - (in 1-2 weeks) Additional Instructions: Call Dr. Arrieta's office in 2 weeks for results of biopsy Hospital course: Mr. Nix is a 81 year old male patient with a history of coronary artery disease , hypertension, was admitted here with severe anemia related to on initial presentation, his hemoglobin was 5.2. Patient was transfused with 4 units of packed red blood cells and evaluated by surgery. He was kept nothing by mouth and treated with IV PPI. Patient's hemoglobin improved to 7.2 after these blood transfusions. She did have slight troponin elevation to 0.34. A 2-D echocardiogram and cardiology consult was ordered. Most likely the patient has demand ischemia and given his severe anemia and no ischemic workup was done. He can follow up with cardiology as outpatient for further management. After cardiac clearance, patient underwent colonoscopy and upper GI endoscopy yesterday. He was found to have a duodenal ulcer with no stigmata of bleeding. There was mild duodenitis and gastritis. Patient was started on a diet and also on Protonix and Carafate. He did have colonic polyps which were removed and sent for biopsy. Patient can follow up with surgery for results of the biopsy. At this time, his not having any further episodes of bleeding. His blood counts have remained stable since yesterday. He is cleared for discharge by surgery and will follow up with his primary care provider for further management. He will continue to take Carafate and Protonix. - Time Spent with Patient Total time spent providing and/or coordinating discharge services: Less than 30 minutes (25 min) - Constitutional Vitals: Temp Pulse Resp BP Pulse Ox 97.9 F 79 20 130/62 98 06/01/17 06:53 06/01/17 06:53 06/01/17 06:53 06/01/17 06:53 06/01/17 07:45 General appearance: Present: cooperative, A&O X 3, pleasant, no acute distress, obese, answers questions appropriately - Respiratory Respiratory exam: Present: CTAB. Absent: accessory muscle use, rales, rhonchi, wheezes - Cardiovascular Cardiovascular exam: Present: RRR, +S1, +S2. Absent: diastolic murmur, gallop, rubs, systolic murmur - GI/Abdominal GI/Abdominal exam: Present: normal bowel sounds, soft, no peritoneal signs. Absent: distended, tenderness
[2017-06-01 10:59] VITALS: BP 135/69
--- NOTE | 2017-06-01 11:41 | Physician Discharge Referral ---
Home Health/Hosp Referral Info Transfer to: Home Health Provider in Charge Post Discharge: PCP - Diagnosis (1) Anemia Priority: Primary Status: Acute (2) Bleeding gastrointestinal Priority: Secondary Status: Acute (3) Elevated troponin Priority: Secondary Status: Acute (4) Diabetes Priority: Secondary Status: Chronic (5) HTN (hypertension) Priority: Secondary Status: Chronic (6) CKD (chronic kidney disease) stage 3, GFR 30-59 ml/min Priority: Secondary Status: Chronic (7) Duodenal ulcer Priority: Secondary Status: Acute - Respiratory Orders Smoking Cessation: Smoking cessation has been advised. For more information, call the [place] Tobacco Quit Line at 3-681-SGTO-NOW. - Diet/Nutrition Diet/Nutrition Orders: Cardiac - Activity Activity Orders: Walker - Services Needed Following services are medically necessary services: Physical Therapy, Occupational Therapy - Transfer Medications Prescriptions: Nystatin POWDER [Nystop] 1 appl TP BID #1 bottle Pantoprazole Sodium [Protonix] 40 mg PO BID #60 tablet. Sucralfate [Carafate] 1 gm PO QIDAC #120 tab Home Medications: Doxazosin [Cardura] 4 mg PO DAILY 05/29/16 [History] Furosemide [Lasix] 40 mg PO DAILY 05/29/16 [History] Irbesartan [Avapro] 150 mg PO DAILY 05/29/16 [History] Levothyroxine [Synthroid] 112 mcg PO DAILY 05/29/16 [History] Pramipexole [Mirapex] 0.25 mg PO HS 05/29/16 [History] hydrALAZINE [HydrALAZINE] 25 mg PO TID 05/29/16 [History] Albuterol Sulfate [Albuterol Inhaler] 2 puff IH Q4-6H PRN 11/03/16 [History] Aspirin [Lo-Dose Aspirin EC] 81 mg PO DAILY 11/03/16 [History] Meclizine [Antivert] 25 mg PO DAILY 11/03/16 [History] Ferrous Sulfate [Iron] 325 mg PO BID 05/29/17 [History] Gabapentin [Neurontin] 300 mg PO Q8H 05/29/17 [History] HYDROcodone/Acet 5/325 mg [[place] 5-325 mg] 1 tab PO Q6H PRN 05/29/17 [History] Metoprolol XL (24 HR) Succ [Toprol Xl] 50 mg PO DAILY 05/29/17 [History] NIFEdipine XL (24 HR) [Procardia XL] 60 mg PO DAILY 05/29/17 [History] Potassium Chloride [K-Tab ER] 20 meq PO DAILY 05/29/17 [History] SitaGLIPtin [Januvia] 100 mg PO DAILY 05/29/17 [History] clonazePAM [Klonopin] 0.5 mg PO BID PRN 05/29/17 [History] Nystatin POWDER [Nystop] 1 appl TP BID #1 bottle 06/01/17 [Rx] Pantoprazole Sodium [Protonix] 40 mg PO BID #60 tablet. 06/01/17 [Rx] Sucralfate [Carafate] 1 gm PO QIDAC #120 tab 06/01/17 [Rx] Allergies/Adverse Reactions: 3 Allergy/AdvReac Type Severity Reaction Status Date / Time No Known Allergies Allergy Verified 05/29/16 18:05 Certification: Further, I certify that my clinical findings support that this patient is homebound (i.e. absences from home require considerable and taxing effort and are for medical reasons or taoist services or infrequently or short duration when for other reasons) because: Homebound Reason: Patient requires assistance of a person or device to safely leave home Attestation: My signature below is to certify that this patient is under my care and that I, or nurse practitioner, or a physician's contact lens assistant working with me, has a face-to -face encounter with this patient.
== END 2017-06-01 12:10 | disposition home or self-care (01) | DRG 378 ==
LOC: EMEROO 11:19 → 3ANU 15:14
PROVIDERS: ADMIT Internal Medicine; ATTEND Internal Medicine
PROC: ENDOEBX (2017-05-31 18:55)